=== PATIENT | female | born 1950 | race Caucasian/White ===

== ENCOUNTER 2021-03-18 13:43 | Inpatient (IN) | payer MEDICARE, SELFPAY ==
[2021-03-18] VITALS (18 sets, daily range): BP systolic 102–138; BP diastolic 63–93; PULSE 64–108; RESP 19–32; TEMP 36.6–37.3; O2SAT 78–95; BMI 38.7; BMI 39.6
--- NOTE | 2021-03-18 13:52 | PC.NURSE ---
PT O2 SAT OF 76% ON ROOM AIR IN TRIAGE, PT MOVED TO TRAUMA RM 4, MD NOTIFIED OF PT'S ARRIVAL.
--- NOTE | 2021-03-18 14:33 | XR_ITS ---
PROCEDURE: XR CHEST PORTABLE CLINICAL HISTORY: SOB, LOW O2 COMPARISON: CR CXR1 CHEST-PORTABLE from 11/21/2012 FINDINGS: Mild cardiomegaly without failure. There is diffuse consolidation in the right upper and right lower lobe and in the left lower lobe consistent with bilateral pneumonia. There is some sparing in the left apex. No obvious effusions. No evidence of pneumothorax. No acute bony abnormalities. IMPRESSION: Diffuse bilateral pneumonia Dictated by: Shreyas Montgomery MD 03/18/2021 15:30 Shreyas Montgomery MD in OV 03/18/2021 15:30
[2021-03-18 14:51] LABS: Influenza A, PCR Not Detected (NotDetected); Influenza B, PCR Not Detected (NotDetected)
[2021-03-18 14:52] LABS: Basophils # 0.1 K/mm3 (0-0.2); Basophils % 0.7 % (0.1-2.0); Eosinophils % 0.5 % (0.1-12.0); Hematocrit 43.1 % (37.0-47.0); Hemoglobin 14.2 g/dL (12.2-16.2); Lymphocytes % 12.2 % (10-50); Mean Corpuscular HGB Conc 32.9 g/dL (31.8-35.4); Mean Corpuscular Hemoglobin 31.9 pg (27.0-31.2); Mean Corpuscular Volume 97.1 fl (81-99); Mean Platelet Volume 7.8 fl (7.4-10.4); Monocytes # 0.3 K/mm3 (0.1-1.0); Monocytes % 4.1 % (1.7-9.3); Neutrophils # 6.7 K/mm3 (1.8-7.8); Neutrophils % 82.5 % (37.0-80.0); Platelet Count 310 K/mm3 (142-424); Red Blood Count 4.44 M/mm3 (4.20-5.40); Red Cell Distribution Width 13.3 % (11.5-17.5); White Blood Count 8.1 K/mm3 (4.8-10.8)
[2021-03-18 14:53] LABS: Chloride 96 mmol/L (98-107)
[2021-03-18 14:54] LABS: Potassium 3.9 mmoL/L (3.5-5.1); Sodium 136 mmol/L (136-145)
--- NOTE | 2021-03-18 14:54 | PC.NURSE ---
Switched pt to a nonrebreather mask d/t O2 sat 87% on 6LPM via NC
[2021-03-18 14:56] LABS: Alanine Aminotransferase 34 U/L (12-78); Alkaline Phosphatase 83 U/L (38-126); Aspartate Amino Transferase 70 U/L (14-36); Bilirubin,Total 0.2 mg/dl (0.2-1.3); Blood Urea Nitrogen 24 mg/dl (7-17); Creatinine Clearance Estimated 74 mL/min (50-200); Estimated Glomerular Filt Rate 40 ml/min (>60); GFR (African American) 49 ML/MIN (>60)
[2021-03-18 14:57] LABS: Albumin Level 3.6 g/dl (3.5-5.0); Albumin/Globulin Ratio 1.1 (1.1-1.8); Anion Gap 12.9 mEq/L (5-15); Calcium 9.1 mg/dl (8.4-10.2); Carbon Dioxide 31 mmol/L (22.0-30.0); Globulin 3.4 g/dL (1.3-3.2); Glucose 132 mg/dl (74-100); Lactic Acid 1.1 mmol/L (0.7-2.1)
[2021-03-18 15:13] LABS: Coronavirus 19, PCR Detected (NotDetected)
[2021-03-18 15:30] LABS: ABG HCO3 28.9 mmhg (22.0-26.0); ABG Oxygen Saturation 94 % (90-100); ABG PCO2 41.7 mmhg (35.0-45.0); ABG PH 7.46 mmol/L (7.35-7.45); ABG TCO2 30.1 mmhg (23-27)
[2021-03-18 15:31] LABS: Allen's Test Acceptable; Oxygen 100 %; Source Left Radial
--- NOTE | 2021-03-18 18:06 | HMH.EDGENADL ---
ED Disposition Clinical Impression: SHARONA (acute kidney injury), Acute respiratory failure with hypoxia, Pneumonia due to COVID-19 virus Disposition: Admitted As Inpatient Condition on Discharge: Fair Time of Disposition: 18:13 - Critical Care Critical Care Time: No Attestation: On 03/18/21, the high probability of a clinically significant, sudden or life threatening deterioration of the following system(s) required my full and direct attention, intervention and personal management. The time I documented below is in addition to time spent performing reported procedures but includes the following listed in this critical care notation. Medical Decision Making - Medical Records Medical records reviewed: Yes: I reviewed the patient's medical records. - Alejandro Inquiry Pt receiving controlled substance: No Vital Signs: 03/18/21 13:44 03/18/21 13:50 03/18/21 15:08 Temperature 99.2 F Temperature Source Oral Pulse Rate 100 H Pulse Rate [Right] 108 H Respiratory Rate 22 28 H Blood Pressure 127/93 H Blood Pressure [Right Arm] 106/63 L Blood Pressure Mean 112 Blood Pressure Mean [Right Arm] 77 02 Sat by Pulse Oximetry 78 L 92 L 92 L Oxygen Delivery Method Room Air Nasal Cannula Oxygen Flow Rate (LPM) 6 03/18/21 15:30 03/18/21 16:00 03/18/21 16:30 Temperature Temperature Source Pulse Rate 97 H 104 H 77 Pulse Rate [Right] Respiratory Rate 24 26 H 31 H Blood Pressure 121/73 115/74 127/74 Blood Pressure [Right Arm] Blood Pressure Mean 89 84 84 Blood Pressure Mean [Right Arm] 02 Sat by Pulse Oximetry 92 L 92 L 92 L Oxygen Delivery Method Oxygen Flow Rate (LPM) 03/18/21 17:01 03/18/21 17:30 03/18/21 18:00 Temperature Temperature Source Pulse Rate 103 H 96 H 98 H Pulse Rate [Right] Respiratory Rate 19 29 H 32 H Blood Pressure 102/65 L 119/73 126/76 Blood Pressure [Right Arm] Blood Pressure Mean 77 88 87 Blood Pressure Mean [Right Arm] 02 Sat by Pulse Oximetry 88 L 94 L 87 L Oxygen Delivery Method Oxygen Flow Rate (LPM) - Lab Data Lab results reviewed: Yes: I reviewed the patient's lab results. Lab Results 03/18/21 14:24: SARS-CoV-2 (PCR) Detected A, Influenza A Untype (PCR) Not detected, Influenza Type B (PCR) Not detected 03/18/21 14:31: WBC 8.1, RBC 4.44, Hgb 14.2, Hct 43.1, MCV 97.1, MCH 31.9 H, MCHC 32.9, RDW 13.3, Plt Count 310, MPV 7.8, Neut % (Auto) 82.5 H, Lymph % (Auto) 12.2, [place] % (Auto) 4.1, Eos % (Auto) 0.5, Baso % (Auto) 0.7, Neut # (Auto) 6.7, Lymph # (Auto) 1.0, [place] # (Auto) 0.3, Eos # (Auto) 0.0, Baso # (Auto) 0.1 03/18/21 14:31: Sodium 136, Potassium 3.9, Chloride 96 L, Carbon Dioxide 31 H, Anion Gap 12.9, BUN 24 H, Creatinine 1.30 H, Estimated Creat Clear 74, Estimated GFR 40 L, Est GFR ( Amer) 49 L, Glucose 132 H, Calcium 9.1, Total Bilirubin 0.2, AST 70 H, ALT 34, Alkaline Phosphatase 83, Total Protein 7.0, Albumin 3.6, Globulin 3.4 H, Albumin/Globulin Ratio 1.1 03/18/21 14:31: Lactate 1.1 03/18/21 15:28: Specimen Source Left radial, O2 % 100, ABG pH 7.46 H, ABG pCO2 41.7, ABG pO2 65.0 L, ABG HCO3 28.9 H, ABG Total CO2 30.1 H, ABG O2 Saturation 94, ABG Base Excess 5.0 H, Shreyas Test Acceptable Result diagrams: 03/18/21 14:31 03/18/21 14:31 Orders (Tests/Meds): ED MEDICATIONS Generic Name Dose Route Start Last Admin Trade Name Freq PRN Reason Stop Dose Admin Azithromycin 500 mg/ Sodium 250 mls @ 250 mls/hr 03/18/21 16:00 03/18/21 17:46 Chloride IV 04/01/21 15:59 250 mls/hr Q24H SERA Administration Ceftriaxone Sodium 1 gm/ 50 mls @ 100 mls/hr 03/18/21 16:00 03/18/21 16:41 Sodium Chloride IV 04/01/21 15:59 100 mls/hr Q24H SERA Administration Sodium Chloride 1,000 mls @ 999 mls/hr 03/18/21 18:15 Sod Chlor 0.9% 1000ml Bag IV 03/18/21 19:15 .Q1H1M SERA Iopamidol 70 ml 03/18/21 18:41 03/18/21 18:42 Iopamidol-370 (76%);100ml Bottle IV 03/18/21 18:42 70 ml ONCE ONE Administ
--- NOTE | 2021-03-18 18:12 | CT_ITS ---
PROCEDURE INFORMATION: Exam: CTA Chest With Contrast Exam date and time: 03/18/2021 6:12 PM Age: 70 years old Clinical indication: Pain; On breathing; Additional info: Resp failure TECHNIQUE: Imaging protocol: Computed tomographic angiography of the chest with contrast. 3D rendering (Not supervised by radiologist): MIP and/or 3D reconstructed images were created by the technologist. Radiation optimization: All CT scans at this facility use at least one of these dose optimization techniques: automated exposure control; mA and/or kV adjustment per patient size (includes targeted exams where dose is matched to clinical indication); or iterative reconstruction. Contrast material: ISOVUE; Contrast volume: 75 ml; Contrast route: INTRAVENOUS (IV); COMPARISON: CR XR CHEST PORTABLE 03/18/2021 2:40 PM FINDINGS: Pulmonary arteries: Normal. No pulmonary emboli. Aorta: Unremarkable. No aortic aneurysm. No aortic dissection. Lungs: Patchy subpleural predominant ground-glass opacities are concerning for atypical infection, possibly mild changes of influenza like illness. Pleural spaces: Unremarkable. No pneumothorax. No pleural effusion. Heart: Unremarkable. No cardiomegaly. No pericardial effusion. Mediastinal space: A small sliding hiatal hernia is present. Lymph nodes: Prominent mediastinal and hilar lymph nodes are likely reactive. Liver: Multiple calcific densities of the liver are likely related to prior granulomatous process. Spleen: Multiple calcific densities of the spleen are likely related to prior granulomatous process. Bones/joints: Unremarkable. No acute fracture. Soft tissues: Unremarkable. IMPRESSION: Patchy subpleural predominant ground-glass opacities are concerning for atypical infection, possibly mild changes of influenza like illness. No CT angiography evidence of pulmonary embolism. Motion artifacts slightly limits sensitivity and specificity of the examination.
--- NOTE | 2021-03-18 19:17 | PC.NURSE ---
CAROLINE JAUREGUI spoke with Dr. Jack
--- NOTE | 2021-03-18 19:22 | PC.NURSE ---
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
[2021-03-18 20:50] LABS: Alanine Aminotransferase 29 U/L (12-78); Albumin Level 3.5 g/dl (3.5-5.0); Albumin/Globulin Ratio 1.1 (1.1-1.8); Alkaline Phosphatase 71 U/L (38-126); Aspartate Amino Transferase 67 U/L (14-36); Bilirubin,Total 0.2 mg/dl (0.2-1.3); Blood Urea Nitrogen 24 mg/dl (7-17); Calcium 8.8 mg/dl (8.4-10.2); Carbon Dioxide 30 mmol/L (22.0-30.0); Chloride 97 mmol/L (98-107); Creatinine Clearance Estimated 80 mL/min (50-200); Estimated Glomerular Filt Rate 44 ml/min (>60); GFR (African American) 54 ML/MIN (>60); Globulin 3.1 g/dL (1.3-3.2); Glucose 106 mg/dl (74-100); Sodium 136 mmol/L (136-145); Total Protein,Serum 6.6 g/dl (6.3-8.2)
--- NOTE | 2021-03-18 21:59 | PC.NURSE ---
patient up to floor via stretcher.
[2021-03-19] VITALS (10 sets, daily range): BP systolic 128–142; BP diastolic 64–93; PULSE 66–104; RESP 18–25; TEMP 36.6–36.9; O2SAT 87–96; BMI 39.6
--- NOTE | 2021-03-19 00:21 | PC.NURSE ---
A&OX4. PT IS TOLERATING VAPOTHERM AT 40L 100%, O2 SAT IN LOW 90S. PT HAS NOT C/O PAIN, OR SOA. PT DOES HAVE A NON-PRODUCTIVE COUGH. PT HAS BEEN TOLD THAT WE NEED A SPUTUM SAMPLE. PT IS ABLE TO GET UP TO THE BEDSIDE COMMODE ON HER OWN. PT RESTING COMFORTABLY IN BED AT THIS TIME. PT HAS A GOOD APPETITE. HOME MEDS LOCKED IN DRAWER. NO OTHER C/O NOTED, VSS WILL CONTINUE TO MONITOR. PROPER PRECAUTIONS TAKEN BY STAFF T/O SHIFT.
--- NOTE | 2021-03-19 00:54 | PC.NURSE ---
REPORT TO BE HANDED OFF TO Hodan LAZO AT 0100.
[2021-03-19 06:24] LABS: Basophils # 0.1 K/mm3 (0-0.2); Basophils % 0.7 % (0.1-2.0); Eosinophils % 0.4 % (0.1-12.0); Hematocrit 41.1 % (37.0-47.0); Lymphocytes # 1.3 K/mm3 (0.7-4.5); Lymphocytes % 17.8 % (10-50); Mean Corpuscular HGB Conc 31.6 g/dL (31.8-35.4); Mean Corpuscular Hemoglobin 31.3 pg (27.0-31.2); Mean Corpuscular Volume 98.9 fl (81-99); Mean Platelet Volume 7.7 fl (7.4-10.4); Monocytes # 0.4 K/mm3 (0.1-1.0); Monocytes % 5.2 % (1.7-9.3); Neutrophils # 5.5 K/mm3 (1.8-7.8); Neutrophils % 75.9 % (37.0-80.0); Platelet Count 315 K/mm3 (142-424); Red Blood Count 4.16 M/mm3 (4.20-5.40); Red Cell Distribution Width 13.5 % (11.5-17.5); White Blood Count 7.2 K/mm3 (4.8-10.8)
[2021-03-19 06:34] LABS: Alanine Aminotransferase 29 U/L (12-78); Albumin Level 3.2 g/dl (3.5-5.0); Alkaline Phosphatase 68 U/L (38-126); Anion Gap 11.8 mEq/L (5-15); Aspartate Amino Transferase 63 U/L (14-36); Bilirubin,Total 0.2 mg/dl (0.2-1.3); Blood Urea Nitrogen 20 mg/dl (7-17); Calcium 8.4 mg/dl (8.4-10.2); Carbon Dioxide 33 mmol/L (22.0-30.0); Chloride 96 mmol/L (98-107); Creatinine Clearance Estimated 98 mL/min (50-200); Estimated Glomerular Filt Rate 55 ml/min (>60); GFR (African American) 66 ML/MIN (>60); Globulin 3.1 g/dL (1.3-3.2); Glucose 102 mg/dl (74-100); Magnesium 1.5 mg/dl (1.6-2.3); Potassium 3.8 mmoL/L (3.5-5.1); Sodium 137 mmol/L (136-145); Total Protein,Serum 6.3 g/dl (6.3-8.2)
--- NOTE | 2021-03-19 07:31 | P.CONPHA_ITS ---
[facility] Pharmacy VTE Monitoring - Patient Demographics Admission date: 03/18/21 Report Date: 03/19/21 Time: 07:31 Allergies/Adverse Reactions: Patient Allergies No Known Allergies Allergy (Verified 03/17/18 14:24) Height: 1.73 m Weight: 118.87 kg Patient Problems: Current Active Problems SHARONA (acute kidney injury) (Acute) Acute respiratory failure with hypoxia (Acute) Pneumonia due to COVID-19 virus (Acute) - VTE Risk Labs: VTE Related Lab Results Hgb 13.0 g/dL (12.2-16.2) 03/19/21 06:06 Hct 41.1 % (37.0-47.0) 03/19/21 06:06 Plt Count 315 K/mm3 (142-424) 03/19/21 06:06 BUN 20 mg/dl (7-17) H 03/19/21 06:06 Creatinine 1.00 mg/dl (0.52-1.04) 03/19/21 06:06 Estimated Creat Clear 98 mL/min (50-200) 03/19/21 06:06 - Prophylaxis VTE Prophylaxis Ordered?: Yes Types of VTE Prophylaxis: IPCS Thigh High, Pharmacological Location of Applied Device: Bilateral Lower Extremeties Pharmacologic Type: Enoxaparin
--- NOTE | 2021-03-19 10:20 | HMH.PHAINT ---
verified home medicaiton list using list from [facility]
--- NOTE | 2021-03-19 12:53 | HMH.HP ---
*Admission Date: 03/18/21 *Chief complaint: weakness *History of present illness: 70 year old female with nearly 2 weeks of URI symptoms attributed to allergies presented to the ER with increasing weakness over the preceding 48 hours and was found to be hypoxic. Further workup diagnosed Acute resp. failure due to Covid-19 pneumonia. Patient was intially placed on NC at 6L/min but since admission has been transitioned to maximum HFNC. Patient has not h/o lung disease but has HTN and is Obese. She denies SOA and cough has been mostly nonproductive. She has not recieved a Covid vaccine [facility] History I have reviewed the patient's past medical history: Yes Medical History: Reports:: Hypertension *Have you ever received a pneumonia vaccine?: No *Have you received a flu vaccine this season?: No Other Medical History: Reports: Arthritis Other Surgeries: Yes: Hysterectomy-Total Amputation: No Fractures: No - *Social History Smoking Status: Former smoker Tobacco Type: cigarettes Alcohol Intake: never Substance Use Type: denies use *Occupational Status:: retired *Travel in the last 8 weeks: None Family Hx:: No significant family history Review of Systems - Review of Systems Review of systems:: pertinent systems reviewed and negative unless documented below Meds Home Medications Medication Instructions Recorded Confirmed Type Flurbiprofen 100 mg PO BID 03/19/21 03/19/21 History Solifenacin Succinate 10 mg PO DAILY 03/19/21 03/19/21 History cilostazoL [Pletal 100mg tablet] 100 mg PO BID 03/19/21 03/19/21 History lisinopriL [Lisinopril] 10 mg PO DAILY 03/19/21 03/19/21 History metOLazone [Metolazone 5mg Tab] 5 mg PO DAILY 03/19/21 03/19/21 History Allergies Allergy/AdvReac Type Severity Reaction Status Date / Time No Known Allergies Allergy Verified 03/17/18 14:24 Exam Vital signs and Labs for Last 24 Hours: Temp Pulse Resp BP Pulse Ox 97.8 F 104 H 20 131/93 H 87 L 03/19/21 07:57 03/19/21 07:57 03/19/21 07:57 03/19/21 07:57 03/19/21 07:57 Laboratory Results - last 24 hr 03/18/21 14:24: SARS-CoV-2 (PCR) Detected A, Influenza A Untype (PCR) Not detected, Influenza Type B (PCR) Not detected 03/18/21 14:31: WBC 8.1, RBC 4.44, Hgb 14.2, Hct 43.1, MCV 97.1, MCH 31.9 H, MCHC 32.9, RDW 13.3, Plt Count 310, MPV 7.8, Neut % (Auto) 82.5 H, Lymph % (Auto) 12.2, [place] % (Auto) 4.1, Eos % (Auto) 0.5, Baso % (Auto) 0.7, Neut # (Auto) 6.7, Lymph # (Auto) 1.0, [place] # (Auto) 0.3, Eos # (Auto) 0.0, Baso # (Auto) 0.1 03/18/21 14:31: Sodium 136, Potassium 3.9, Chloride 96 L, Carbon Dioxide 31 H, Anion Gap 12.9, BUN 24 H, Creatinine 1.30 H, Estimated Creat Clear 74, Estimated GFR 40 L, Est GFR ( Amer) 49 L, Glucose 132 H, Calcium 9.1, Total Bilirubin 0.2, AST 70 H, ALT 34, Alkaline Phosphatase 83, Total Protein 7.0, Albumin 3.6, Globulin 3.4 H, Albumin/Globulin Ratio 1.1 03/18/21 14:31: Lactate 1.1 03/18/21 15:28: Specimen Source Left radial, O2 % 100, ABG pH 7.46 H, ABG pCO2 41.7, ABG pO2 65.0 L, ABG HCO3 28.9 H, ABG Total CO2 30.1 H, ABG O2 Saturation 94, ABG Base Excess 5.0 H, Shreyas Test Acceptable 03/18/21 20:10: Sodium 136, Potassium 4.0, Chloride 97 L, Carbon Dioxide 30, Anion Gap 13.0, BUN 24 H, Creatinine 1.20 H, Estimated Creat Clear 80, Estimated GFR 44 L, Est GFR ( Amer) 54 L, Glucose 106 H, Calcium 8.8, Total Bilirubin 0.2, AST 67 H, ALT 29, Alkaline Phosphatase 71, Total Protein 6.6, Albumin 3.5, Globulin 3.1, Albumin/Globulin Ratio 1.1 03/19/21 06:06: WBC 7.2, RBC 4.16 L, Hgb 13.0, Hct 41.1, MCV 98.9, MCH 31.3 H, MCHC 31.6 L, RDW 13.5, Plt Count 315, MPV 7.7, Neut % (Auto) 75.9, Lymph % (Auto) 17.8, [place] % (Auto) 5.2, Eos % (Auto) 0.4, Baso % (Auto) 0.7, Neut # (Auto) 5.5, Lymph # (Auto) 1.3, [place] # (Auto) 0.4, Eos # (Auto) 0.0, Baso # (Auto) 0.1 03/19/21 06:06: Sodium 137, Potassium 3.8, Chloride 96 L, Carbon Dioxide 33 H, Anion Gap 11.8, BUN 20 H, Creatinine 1.00, Estimated Creat Clear 98, Estimated GFR 55 L, Est GFR (
--- NOTE | 2021-03-19 19:00 | PC.NURSE ---
PT ARRIVED TO THE FLOOR AT THIS TIME
--- NOTE | 2021-03-19 19:49 | PC.NURSE ---
VAPOTHERM 40 LPM 100% FIO2. SITTING UP IN BED. AOX4, DENIES PAIN. VITAL SIGNS STABLE.
[2021-03-20] VITALS (8 sets, daily range): BP systolic 120–149; BP diastolic 80–93; PULSE 78–100; RESP 21–24; TEMP 36.4–37.1; O2SAT 88–95; BMI 39.6; BMI 39.7
--- NOTE | 2021-03-20 03:22 | PC.NURSE ---
No acute changes t/o shift. Pt rested well all night. Pt denies of any pain, N/V. Pt remains on vapotherm 40L/min 100% FIO2. Pt will destat to 88% but will recover quickly back to 90%. Pt uses bedside commode independently. VSS, will continue to monitor.
[2021-03-20 06:23] LABS: Basophils % 0.9 % (0.1-2.0); Eosinophils % 0.1 % (0.1-12.0); Hematocrit 39.7 % (37.0-47.0); Hemoglobin 12.4 g/dL (12.2-16.2); Lymphocytes # 1.5 K/mm3 (0.7-4.5); Lymphocytes % 32.9 % (10-50); Mean Corpuscular HGB Conc 31.3 g/dL (31.8-35.4); Mean Corpuscular Hemoglobin 30.9 pg (27.0-31.2); Mean Corpuscular Volume 98.6 fl (81-99); Mean Platelet Volume 7.6 fl (7.4-10.4); Monocytes # 0.4 K/mm3 (0.1-1.0); Monocytes % 8.9 % (1.7-9.3); Neutrophils # 2.6 K/mm3 (1.8-7.8); Neutrophils % 57.2 % (37.0-80.0); Platelet Count 340 K/mm3 (142-424); Red Blood Count 4.03 M/mm3 (4.20-5.40); Red Cell Distribution Width 13.4 % (11.5-17.5); White Blood Count 4.6 K/mm3 (4.8-10.8)
[2021-03-20 06:44] LABS: Anion Gap 10.3 mEq/L (5-15); Blood Urea Nitrogen 16 mg/dl (7-17); Calcium 8.3 mg/dl (8.4-10.2); Carbon Dioxide 35 mmol/L (22.0-30.0); Chloride 98 mmol/L (98-107); Creatinine Clearance Estimated 98 mL/min (50-200); Estimated Glomerular Filt Rate 71 ml/min (>60); GFR (African American) 86 ML/MIN (>60); Glucose 105 mg/dl (74-100); Potassium 4.3 mmoL/L (3.5-5.1); Sodium 139 mmol/L (136-145)
--- NOTE | 2021-03-20 07:19 | HMH.ACPN2 ---
Internal Medicine - PN: Subj *Date: 03/20/21 *Time: 07:19 Interval history: Patient feels like the last 24 hours have gone well. She does not feel better but she does not feel worse. She denies shortness of breath. O2 sats have been maintained on high flow nasal cannula between 88 and 92% Exam Vital signs and Labs for Last 24 Hours: Temp Pulse Resp BP Pulse Ox 97.9 F 78 24 149/80 H 88 L 03/20/21 04:00 03/20/21 04:00 03/20/21 04:00 03/20/21 04:00 03/20/21 04:00 Laboratory Results - last 24 hr 03/20/21 05:58: WBC 4.6 L D, RBC 4.03 L, Hgb 12.4, Hct 39.7, MCV 98.6, MCH 30.9, MCHC 31.3 L, RDW 13.4, Plt Count 340, MPV 7.6, Neut % (Auto) 57.2, Lymph % (Auto) 32.9, [place] % (Auto) 8.9, Eos % (Auto) 0.1, Baso % (Auto) 0.9, Neut # (Auto) 2.6, Lymph # (Auto) 1.5, [place] # (Auto) 0.4, Eos # (Auto) 0.0, Baso # (Auto) 0.0 03/20/21 05:58: Sodium 139, Potassium 4.3, Chloride 98, Carbon Dioxide 35 H, Anion Gap 10.3, BUN 16, Creatinine 0.80, Estimated Creat Clear 98, Estimated GFR 71, Est GFR ( Amer) 86 D, Glucose 105 H, Calcium 8.3 L I & O for Last 24 hours: Intake & Output 03/17/21 03/18/21 03/19/21 03/20/21 11:59 11:59 11:59 11:59 Intake Total 240 / 240 180 / 180 Output Total 0 / 0 Balance 240 / 240 180 / 180 Weight 262 lb 1 oz 262 lb 1.016 oz - Constitutional no acute distress - *Routine Respiratory Exam Present: rhonchi - *Routine Cardiovascular Exam Present: RRR - *Routine Abdominal Exam Present: soft, normoactive bowel sounds. Absent: tenderness Assessment and Plan (1) Acute respiratory failure with hypoxia Status: Acute Category: Medical Code(s): J96.01 - Acute respiratory failure with hypoxia (2) Pneumonia due to COVID-19 virus Status: Acute Category: Medical Code(s): U07.1 - COVID-19; J12.82 - Pneumonia due to coronavirus disease 2019 (3) SHARONA (acute kidney injury) Status: Resolved Category: Medical Code(s): N17.9 - Acute kidney failure, unspecified (4) Hypertension Status: Acute Category: Medical Code(s): I10 - Essential (primary) hypertension (5) Hypomagnesemia Status: Acute Category: Medical Code(s): E83.42 - Hypomagnesemia - Assessment and plan all Dx Assessment and Plan for all problems:: 1. Continue high flow nasal cannula along with Remdesivir, baricitinib, dexamethasone, Rocephin, azithromycin, duo nebs, incentive spirometry, chest physiotherapy
--- NOTE | 2021-03-20 09:00 | HMH.PULMCON ---
*Admission Date: 03/18/21 *Reason for consult:: Acute hypoxic respiratory failure, COVID-19 pneumonia *History of present illness: Ms. Wetzel is a 78-year-old female presented to the ER with worsening respiratory distress and muscle weakness and eventually found to be COVID-19 positive initially needing nasal cannula patient to manage her respiratory distress and pulmonary was called for further management. [facility] History Medical History: Reports:: Hypertension *Have you ever received a pneumonia vaccine?: No *Have you received a flu vaccine this season?: No Other Medical History: Reports: Arthritis Other Surgeries: Yes: Hysterectomy-Total Amputation: No Fractures: No - *Social History Smoking Status: Former smoker Tobacco Type: cigarettes Alcohol Intake: never Substance Use Type: denies use *Occupational Status:: retired *Travel in the last 8 weeks: None Family Hx:: No significant family history ROS - Cons Reports anorexia, Reports body ache(s), Reports chills - Card Reports shortness of breath, Reports shortness of breath with activity - Resp Respiratory: Reports chest congestion, Reports cough, Reports excessive phlegm production, Denies coughing up blood, Denies pain with breathing - GI Gastrointestingal: Denies: abdominal pain - Psych Reports abnormal sleep pattern Meds Home Medications Medication Instructions Recorded Confirmed Type Flurbiprofen 100 mg PO BID 03/19/21 03/19/21 History Solifenacin Succinate 10 mg PO DAILY 03/19/21 03/19/21 History cilostazoL [Pletal 100mg tablet] 100 mg PO BID 03/19/21 03/19/21 History lisinopriL [Lisinopril] 10 mg PO DAILY 03/19/21 03/19/21 History metOLazone [Metolazone 5mg Tab] 5 mg PO DAILY 03/19/21 03/19/21 History Allergies Allergy/AdvReac Type Severity Reaction Status Date / Time No Known Allergies Allergy Verified 03/17/18 14:24 Exam - Constitutional Constitutional:: Absent: no acute distress, comfortable - HENMT Exam HENMT: Present: normocephalic, atraumatic - Eye Exam Eyes:: Present: normal appearance both eyes and related structures - Neck Exam Neck:: Present: normal visual inspection - Respiratory Exam Respiratory:: Present: respiratory distress. Absent: able to speak in complete sentences - Cardiovascular Exam Cardiac:: Present: S1, S2 - GI Exam GI:: Present: soft - Skin Exam Skin: Present: warm, no rash - Neurological Exam Neurological: Present: alert, awake, normal cognition - Extremities Exam Extremities: Present: no cyanosis, no clubbing, edema Internal Medicine - CN: Reslt - Labs CBC & Chem 7: 03/20/21 05:58 03/20/21 05:58 Labs: Short CBC 03/20/21 Range/Units 05:58 WBC 4.6 L D (4.8-10.8) K/mm3 Hgb 12.4 (12.2-16.2) g/dL Hct 39.7 (37.0-47.0) % Plt Count 340 (142-424) K/mm3 BMP 03/20/21 05:58 Sodium 139 Potassium 4.3 Chloride 98 Carbon Dioxide 35 H BUN 16 Creatinine 0.80 Glucose 105 H Calcium 8.3 L - ABG Interpretation ABG results: 03/18/21 15:28 ABG pH 7.46 H ABG pCO2 41.7 ABG pO2 65.0 L ABG HCO3 28.9 H ABG Total CO2 30.1 H ABG O2 Saturation 94 ABG Base Excess 5.0 H Assessment and Plan (1) Acute respiratory failure with hypoxia Status: Acute Category: Medical Code(s): J96.01 - Acute respiratory failure with hypoxia (2) Pneumonia due to COVID-19 virus Status: Acute Category: Medical Code(s): U07.1 - COVID-19; J12.82 - Pneumonia due to coronavirus disease 2019 (3) SHARONA (acute kidney injury) Status: Resolved Category: Medical Code(s): N17.9 - Acute kidney failure, unspecified (4) Hypertension Status: Acute Category: Medical Code(s): I10 - Essential (primary) hypertension (5) Hypomagnesemia Status: Acute Category: Medical Code(s): E83.42 - Hypomagnesemia - Assessment and plan all Dx Assessment and Plan for all problems:: Acute hypoxic respiratory failure: #COVID-19 pneumonia: CTA did not
[2021-03-20 09:35] LABS: Magnesium 2.1 mg/dl (1.6-2.3)
--- NOTE | 2021-03-20 13:31 | CA_ITS ---
APPROVED REPORT Bilateral Lower Extremity Venous Study for DVT. Instructor Of Education: HARLAN Indications Covid -19, obesity, varicosities, Hypoxia Vein Imaging CFV (R): compressive, spontaneous, phasic, augmentation SFJ (R): compressive, spontaneous, phasic, augmentation FEM (R): compressive, spontaneous, phasic, augmentation POP (R): compressive, spontaneous, phasic, augmentation DFV (R): compressive, spontaneous, phasic, augmentation PTV (R): non-Compressible with spontaneous flow GSV (R): compressive, spontaneous, phasic, augmentation SSV (R): compressive, spontaneous, phasic, augmentation Peroneals (R):compressive, spontaneous, phasic, augmentation GAS (R): compressive, spontaneous, phasic, augmentation CFV (L): compressive, spontaneous, phasic, augmentation SFJ (L): compressive, spontaneous, phasic, augmentation FEM (L): compressive, spontaneous, phasic, augmentation POP (L): compressive, spontaneous, phasic, augmentation DFV (L): compressive, spontaneous, phasic, augmentation PTV (L): compressive, spontaneous, phasic, augmentation GSV (L): compressive, spontaneous, phasic, augmentation SSV (L): compressive, spontaneous, phasic, augmentation Peroneals (L):compressive, spontaneous, phasic, augmentation GAS (L): compressive, spontaneous, phasic, augmentation Findings Color flow duplex demonstrates no evidence of DVT of the following bilateral lower extremity Veins:Common Femoral Vein, Femoral Vein, Popliteal Vein, Left Posterior Tibial Veins, Peroneal Veins, Deep Femoral Vein. Right Posterior tibial veins display spontaneous flow, but are rigid and are noncompressible. Equivocal findings consistent for DVT of the right PTV's. Conclusion Color flow duplex demonstrates no evidence of DVT of the following bilateral lower extremity Veins:Common Femoral Vein, Femoral Vein, Popliteal Vein, Left Posterior Tibial Veins, Peroneal Veins, Deep Femoral Vein. Right Posterior tibial veins display spontaneous flow, but are rigid and are noncompressible. Equivocal findings consistent for DVT of the right PTV's. Electronically signed by : Shreyas Montgomery MD 03/23/2021 16:25:29
[2021-03-20 14:26] LABS: C-Reactive Protein 120.2 mg/L (0-4); D-Dimer 0.73 ug/mL (0.0-0.5)
[2021-03-20 15:33] LABS: Ferritin 288 ng/ml (11.1-264)
--- NOTE | 2021-03-20 18:16 | PC.NURSE ---
Pt has been pleasant and cooperative this shift. A&O X4. No complaints of pain. Pt is currently receiving O2 via Vapotherm @ 40 LPM with sats. >88%. Lungs CTA. No edema noted. Skin is C/D/I. Pt ambulates independently in the room and uses the BSC. Urine is clear and yellow. No BM thus far today. Appetite is good and pt eats the majority of all meals. 20 G peripheral IV in the LT AC is patent and SL. VSS. Call light within reach. Will continue to monitor.
[2021-03-21] VITALS (9 sets, daily range): BP systolic 111–166; BP diastolic 60–95; PULSE 82–101; RESP 14–22; TEMP 36.6–37.1; O2SAT 90–98
--- NOTE | 2021-03-21 03:42 | PC.NURSE ---
A&OX4. TOLERATING VAPOTHERM AT 40L 100%. O2 SAT IN LOW 90S. PT HAS HAD NO C/O SOA/COUGH/PAIN THUS FAR. PT UP INDEPENDENTLY TO BEDSIDE COMMODE. HAS SLEPT MAJORITY OF SHIFT. PT DOES LIE ON HER SIDE. COVID PRECAUTIONS IN PLACE. VSS WILL CONTINUE TO MONITOR.
[2021-03-21 07:45] LABS: Basophils # 0.1 K/mm3 (0-0.2); Basophils % 0.7 % (0.1-2.0); Eosinophils % 0.2 % (0.1-12.0); Hematocrit 40.8 % (37.0-47.0); Lymphocytes # 2.2 K/mm3 (0.7-4.5); Lymphocytes % 32.5 % (10-50); Mean Corpuscular HGB Conc 31.9 g/dL (31.8-35.4); Mean Corpuscular Hemoglobin 31.1 pg (27.0-31.2); Mean Corpuscular Volume 97.7 fl (81-99); Mean Platelet Volume 7.7 fl (7.4-10.4); Monocytes # 0.7 K/mm3 (0.1-1.0); Monocytes % 9.6 % (1.7-9.3); Neutrophils # 3.9 K/mm3 (1.8-7.8); Neutrophils % 57.1 % (37.0-80.0); Platelet Count 415 K/mm3 (142-424); Red Blood Count 4.18 M/mm3 (4.20-5.40); Red Cell Distribution Width 13.3 % (11.5-17.5); White Blood Count 6.8 K/mm3 (4.8-10.8)
[2021-03-21 07:59] LABS: Alanine Aminotransferase 27 U/L (12-78); Albumin Level 3.4 g/dl (3.5-5.0); Albumin/Globulin Ratio 1.1 (1.1-1.8); Alkaline Phosphatase 65 U/L (38-126); Anion Gap 9.9 mEq/L (5-15); Aspartate Amino Transferase 53 U/L (14-36); Bilirubin,Total 0.3 mg/dl (0.2-1.3); Blood Urea Nitrogen 14 mg/dl (7-17); Calcium 8.5 mg/dl (8.4-10.2); Carbon Dioxide 35 mmol/L (22.0-30.0); Chloride 96 mmol/L (98-107); Creatinine Clearance Estimated 98 mL/min (50-200); Estimated Glomerular Filt Rate 83 ml/min (>60); GFR (African American) 100 ML/MIN (>60); Globulin 3.2 g/dL (1.3-3.2); Glucose 105 mg/dl (74-100); Potassium 3.9 mmoL/L (3.5-5.1); Sodium 137 mmol/L (136-145); Total Protein,Serum 6.6 g/dl (6.3-8.2)
--- NOTE | 2021-03-21 08:18 | HMH.ACPN2 ---
Internal Medicine - PN: Subj *Date: 03/21/21 *Time: 08:18 Interval history: No acute events in the last 24 hours. Patient has remained stable on maximum HFNC with sats ranging from 90 to 96%. Patient did decline Remdesivir yesterday based on her political beliefs. Exam Vital signs and Labs for Last 24 Hours: Temp Pulse Resp BP Pulse Ox 98.5 F 82 22 114/60 96 03/21/21 04:00 03/21/21 04:00 03/21/21 04:00 03/21/21 04:00 03/21/21 06:49 Laboratory Results - last 24 hr 03/20/21 05:58: Magnesium 2.1 D 03/20/21 13:55: C-Reactive Protein 120.2 H 03/20/21 13:55: D-Dimer 0.73 H 03/20/21 13:55: Ferritin 288 H 03/21/21 06:56: WBC 6.8 D, RBC 4.18 L, Hgb 13.0, Hct 40.8, MCV 97.7, MCH 31.1, MCHC 31.9, RDW 13.3, Plt Count 415, MPV 7.7, Neut % (Auto) 57.1, Lymph % (Auto) 32.5, [place] % (Auto) 9.6 H, Eos % (Auto) 0.2, Baso % (Auto) 0.7, Neut # (Auto) 3.9, Lymph # (Auto) 2.2, [place] # (Auto) 0.7, Eos # (Auto) 0.0, Baso # (Auto) 0.1 03/21/21 06:56: Sodium 137, Potassium 3.9, Chloride 96 L, Carbon Dioxide 35 H, Anion Gap 9.9, BUN 14, Creatinine 0.70, Estimated Creat Clear 98, Estimated GFR 83, Est GFR ( Amer) 100, Glucose 105 H, Calcium 8.5, Total Bilirubin 0.3, AST 53 H, ALT 27, Alkaline Phosphatase 65, Total Protein 6.6, Albumin 3.4 L, Globulin 3.2, Albumin/Globulin Ratio 1.1 I & O for Last 24 hours: Intake & Output 03/18/21 03/19/21 03/20/21 03/21/21 11:59 11:59 11:59 11:59 Intake Total 240 / 240 660 / 660 1130 / 1130 Output Total 0 / 0 800 / 800 Balance 240 / 240 660 / 660 330 / 330 Weight 262 lb 1 oz 262 lb 5.601 oz Microbiology Reports for the Last 24 Hours: Microbiology 03/18/21 14:31 Blood Blood Culture - Preliminary NO GROWTH AFTER 48 HOURS 03/18/21 14:31 Blood Blood Culture - Preliminary NO GROWTH AFTER 48 HOURS 03/20/21 08:00 Sputum - Expectorated Sputum Gram Stain - Final - Constitutional no acute distress - *Routine Respiratory Exam Present: rhonchi - *Routine Cardiovascular Exam Present: RRR - *Routine Abdominal Exam Present: soft, normoactive bowel sounds. Absent: tenderness Assessment and Plan (1) Acute respiratory failure with hypoxia Status: Acute Category: Medical Code(s): J96.01 - Acute respiratory failure with hypoxia (2) Pneumonia due to COVID-19 virus Status: Acute Category: Medical Code(s): U07.1 - COVID-19; J12.82 - Pneumonia due to coronavirus disease 2019 (3) SHARONA (acute kidney injury) Status: Resolved Category: Medical Code(s): N17.9 - Acute kidney failure, unspecified (4) Hypertension Status: Acute Category: Medical Code(s): I10 - Essential (primary) hypertension (5) Hypomagnesemia Status: Resolved Category: Medical Code(s): E83.42 - Hypomagnesemia - Assessment and plan all Dx Assessment and Plan for all problems:: 1. Continue dexamethasone, baricitinib for acute respiratory failure from COVID-19 pneumonia 2. Continue Advair, aerosols, Rocephin and azithromycin. Patient has been unable to provide a sputum for culture 3. Continue prone breathing as tolerated
--- NOTE | 2021-03-21 17:06 | HMH.ACPN ---
Internal Medicine - PN: Subj *Date: 03/21/21 *Time: 17:06 Exam Vital signs and Labs for Last 24 Hours: Temp Pulse Resp BP Pulse Ox 98.4 F 98 H 21 144/95 H 90 L 03/21/21 12:00 03/21/21 12:00 03/21/21 12:00 03/21/21 12:00 03/21/21 12:00 Laboratory Results - last 24 hr 03/21/21 06:56: WBC 6.8 D, RBC 4.18 L, Hgb 13.0, Hct 40.8, MCV 97.7, MCH 31.1, MCHC 31.9, RDW 13.3, Plt Count 415, MPV 7.7, Neut % (Auto) 57.1, Lymph % (Auto) 32.5, [place] % (Auto) 9.6 H, Eos % (Auto) 0.2, Baso % (Auto) 0.7, Neut # (Auto) 3.9, Lymph # (Auto) 2.2, [place] # (Auto) 0.7, Eos # (Auto) 0.0, Baso # (Auto) 0.1 03/21/21 06:56: Sodium 137, Potassium 3.9, Chloride 96 L, Carbon Dioxide 35 H, Anion Gap 9.9, BUN 14, Creatinine 0.70, Estimated Creat Clear 98, Estimated GFR 83, Est GFR ( Amer) 100, Glucose 105 H, Calcium 8.5, Total Bilirubin 0.3, AST 53 H, ALT 27, Alkaline Phosphatase 65, Total Protein 6.6, Albumin 3.4 L, Globulin 3.2, Albumin/Globulin Ratio 1.1 I & O for Last 24 hours: Intake & Output 03/18/21 03/19/21 03/20/21 03/21/21 23:59 23:59 23:59 23:59 Intake Total 420 / 420 1610 / 1610 360 / 360 Output Total 0 / 0 800 / 800 Balance 420 / 420 810 / 810 360 / 360 Weight 118.87 kg 118.87 kg 119 kg Microbiology Reports for the Last 24 Hours: Microbiology 03/18/21 14:31 Blood Blood Culture - Preliminary NO GROWTH AFTER 48 HOURS 03/18/21 14:31 Blood Blood Culture - Preliminary NO GROWTH AFTER 48 HOURS Assessment and Plan (1) Acute respiratory failure with hypoxia Status: Acute Category: Medical Code(s): J96.01 - Acute respiratory failure with hypoxia (2) Pneumonia due to COVID-19 virus Status: Acute Category: Medical Code(s): U07.1 - COVID-19; J12.82 - Pneumonia due to coronavirus disease 2019 (3) SHARONA (acute kidney injury) Status: Resolved Category: Medical Code(s): N17.9 - Acute kidney failure, unspecified (4) Hypertension Status: Acute Category: Medical Code(s): I10 - Essential (primary) hypertension (5) Hypomagnesemia Status: Resolved Category: Medical Code(s): E83.42 - Hypomagnesemia The patient's infection will respond to the chosen ABx?: Yes Is the patient receiving the right drug, dose, and route?: Yes Could a more targeted ABx be ordered?: No
--- NOTE | 2021-03-21 18:47 | PC.NURSE ---
Pt has been pleasant and cooperative this shift. A&O X4. No complaints of pain. Pt is currently receiving O2 via Vapotherm @ 40 LPM with sats. >90%. Lung sounds reveal expiratory rhonchi. No edema noted. Skin is C/D/I. Pt ambulates independently in the room and uses the BSC. Urine is clear and yellow. 1 large, brown stool today. Appetite is good and pt eats the majority of all meals. 20 G peripheral IV in the LT AC is patent and SL. VSS. Call light within reach. Will continue to monitor.
[2021-03-22] VITALS (10 sets, daily range): BP systolic 124–154; BP diastolic 51–87; PULSE 81–104; RESP 18–24; TEMP 36.6–37.1; O2SAT 89–100; BMI 39.6
--- NOTE | 2021-03-22 02:54 | PC.NURSE ---
Pt is A/O x4, no acute changes t/o shift. Pt denies any pain. Pt remains on vapotherm 40LPM with O2 stats >90%. Pt can use bedside commode independently. VSS, call light within reach, will continue to monitor.
[2021-03-22 07:16] LABS: Basophils % 0.4 % (0.1-2.0); Eosinophils % 0.1 % (0.1-12.0); Hematocrit 40.4 % (37.0-47.0); Hemoglobin 12.6 g/dL (12.2-16.2); Lymphocytes # 2.6 K/mm3 (0.7-4.5); Lymphocytes % 27.1 % (10-50); Mean Corpuscular HGB Conc 31.3 g/dL (31.8-35.4); Mean Corpuscular Hemoglobin 30.6 pg (27.0-31.2); Mean Corpuscular Volume 97.9 fl (81-99); Mean Platelet Volume 7.4 fl (7.4-10.4); Monocytes # 0.9 K/mm3 (0.1-1.0); Monocytes % 9.7 % (1.7-9.3); Neutrophils # 6.1 K/mm3 (1.8-7.8); Neutrophils % 62.7 % (37.0-80.0); Platelet Count 476 K/mm3 (142-424); Red Blood Count 4.12 M/mm3 (4.20-5.40); Red Cell Distribution Width 13.4 % (11.5-17.5); White Blood Count 9.7 K/mm3 (4.8-10.8)
[2021-03-22 07:35] LABS: Alanine Aminotransferase 28 U/L (12-78); Albumin Level 3.4 g/dl (3.5-5.0); Albumin/Globulin Ratio 1.1 (1.1-1.8); Alkaline Phosphatase 62 U/L (38-126); Anion Gap 8.6 mEq/L (5-15); Aspartate Amino Transferase 45 U/L (14-36); Bilirubin,Total 0.3 mg/dl (0.2-1.3); Blood Urea Nitrogen 15 mg/dl (7-17); Calcium 8.6 mg/dl (8.4-10.2); Carbon Dioxide 35 mmol/L (22.0-30.0); Chloride 98 mmol/L (98-107); Creatinine Clearance Estimated 98 mL/min (50-200); Estimated Glomerular Filt Rate 71 ml/min (>60); GFR (African American) 86 ML/MIN (>60); Globulin 3.2 g/dL (1.3-3.2); Glucose 90 mg/dl (74-100); Potassium 3.6 mmoL/L (3.5-5.1); Sodium 138 mmol/L (136-145); Total Protein,Serum 6.6 g/dl (6.3-8.2)
--- NOTE | 2021-03-22 08:07 | HMH.ACPN2 ---
Internal Medicine - PN: Subj *Date: 03/22/21 *Time: 08:07 Interval history: No acute events over the last 24 hours. Patient's O2 sats are in the high 90s and weaning from HFNC has begun with FiO2 recently turned down to 95%. Exam Vital signs and Labs for Last 24 Hours: Temp Pulse Resp BP Pulse Ox 98.8 F 84 18 154/85 H 100 03/22/21 04:00 03/22/21 05:20 03/22/21 04:00 03/22/21 04:00 03/22/21 05:20 Laboratory Results - last 24 hr 03/22/21 06:29: WBC 9.7 D, RBC 4.12 L, Hgb 12.6, Hct 40.4, MCV 97.9, MCH 30.6, MCHC 31.3 L, RDW 13.4, Plt Count 476 H, MPV 7.4, Neut % (Auto) 62.7, Lymph % (Auto) 27.1, [place] % (Auto) 9.7 H, Eos % (Auto) 0.1, Baso % (Auto) 0.4, Neut # (Auto) 6.1, Lymph # (Auto) 2.6, [place] # (Auto) 0.9, Eos # (Auto) 0.0, Baso # (Auto) 0.0 03/22/21 06:29: Sodium 138, Potassium 3.6, Chloride 98, Carbon Dioxide 35 H, Anion Gap 8.6, BUN 15, Creatinine 0.80, Estimated Creat Clear 98, Estimated GFR 71, Est GFR ( Amer) 86, Glucose 90, Calcium 8.6, Total Bilirubin 0.3, AST 45 H, ALT 28, Alkaline Phosphatase 62, Total Protein 6.6, Albumin 3.4 L, Globulin 3.2, Albumin/Globulin Ratio 1.1 I & O for Last 24 hours: Intake & Output 03/19/21 03/20/21 03/21/21 03/22/21 11:59 11:59 11:59 11:59 Intake Total 240 / 240 660 / 660 1250 / 1250 770 / 770 Output Total 0 / 0 800 / 800 Balance 240 / 240 660 / 660 450 / 450 770 / 770 Weight 262 lb 1 oz 262 lb 5.601 oz 261 lb 4 oz Microbiology Reports for the Last 24 Hours: Microbiology 03/20/21 08:00 Sputum - Expectorated Sputum Gram Stain - Final 03/20/21 08:00 Sputum - Expectorated Sputum Sputum Culture - Preliminary Narrative: Patient is sitting up on the side of the bed and looks comfortable. Lungs have some scattered rhonchi both anteriorly and posteriorly. Heart has regular rate and rhythm Assessment and Plan (1) Acute respiratory failure with hypoxia Status: Acute Category: Medical Code(s): J96.01 - Acute respiratory failure with hypoxia (2) Pneumonia due to COVID-19 virus Status: Acute Category: Medical Code(s): U07.1 - COVID-19; J12.82 - Pneumonia due to coronavirus disease 2019 (3) SHARONA (acute kidney injury) Status: Resolved Category: Medical Code(s): N17.9 - Acute kidney failure, unspecified (4) Hypertension Status: Acute Category: Medical Code(s): I10 - Essential (primary) hypertension (5) Hypomagnesemia Status: Resolved Category: Medical Code(s): E83.42 - Hypomagnesemia - Assessment and plan all Dx Assessment and Plan for all problems:: No change in patient plan of care other than continue to wean HFNC
--- NOTE | 2021-03-22 17:26 | PC.NURSE ---
Pt has been pleasant and cooperative this shift. A&O X4. No complaints of pain. Pt is currently receiving O2 via Vapotherm @ 40 LPM with sats. >90%. Lung sounds reveal expiratory rhonchi. No edema noted. Skin is C/D/I. Pt ambulates independently in the room and uses the BSC. Urine is clear and yellow. No BM thus far today. Appetite is good and pt eats the majority of all meals. 20 G peripheral IV in the LT AC is patent and SL. VSS. Call light within reach. Will continue to monitor.
[2021-03-23] VITALS (10 sets, daily range): BP systolic 115–152; BP diastolic 68–83; PULSE 81–103; RESP 14–20; TEMP 36.4–37.1; O2SAT 96–99
--- NOTE | 2021-03-23 04:38 | PC.NURSE ---
No acute changes t/o shift. Pt remains on Vapotherm 40 L/min 95% FIO2. Pt's O2 stats have remained in the high 90's. At beginning of shift pt had a dry cough. Pt denies any pain t/o shift. VSS, will continue to monitor.
[2021-03-23 07:05] LABS: Basophils # 0.1 K/mm3 (0-0.2); Basophils % 0.4 % (0.1-2.0); Eosinophils % 0.3 % (0.1-12.0); Hematocrit 40.5 % (37.0-47.0); Hemoglobin 12.7 g/dL (12.2-16.2); Lymphocytes # 3.2 K/mm3 (0.7-4.5); Lymphocytes % 27.4 % (10-50); Mean Corpuscular HGB Conc 31.3 g/dL (31.8-35.4); Mean Corpuscular Hemoglobin 30.5 pg (27.0-31.2); Mean Corpuscular Volume 97.4 fl (81-99); Mean Platelet Volume 7.3 fl (7.4-10.4); Monocytes % 8.5 % (1.7-9.3); Neutrophils # 7.5 K/mm3 (1.8-7.8); Neutrophils % 63.4 % (37.0-80.0); Platelet Count 507 K/mm3 (142-424); Red Blood Count 4.16 M/mm3 (4.20-5.40); Red Cell Distribution Width 13.2 % (11.5-17.5); White Blood Count 11.8 K/mm3 (4.8-10.8)
--- NOTE | 2021-03-23 07:13 | P.PN_ITS ---
Internal Medicine - PN: Subj *Date: 03/23/21 *Time: 07:13 Interval history: Patient complains of cough. No acute changes over the last 24 hours. O2 sats remained in the high 90s on high flow nasal cannula with FiO2 of 95%. Exam Vital signs and Labs for Last 24 Hours: Temp Pulse Resp BP Pulse Ox 97.8 F 89 18 115/68 97 03/23/21 04:00 03/23/21 06:04 03/23/21 04:00 03/23/21 04:00 03/23/21 06:05 Laboratory Results - last 24 hr 03/22/21 06:29: WBC 9.7 D, RBC 4.12 L, Hgb 12.6, Hct 40.4, MCV 97.9, MCH 30.6, MCHC 31.3 L, RDW 13.4, Plt Count 476 H, MPV 7.4, Neut % (Auto) 62.7, Lymph % (Auto) 27.1, [place] % (Auto) 9.7 H, Eos % (Auto) 0.1, Baso % (Auto) 0.4, Neut # (Auto) 6.1, Lymph # (Auto) 2.6, [place] # (Auto) 0.9, Eos # (Auto) 0.0, Baso # (Auto) 0.0 03/22/21 06:29: Sodium 138, Potassium 3.6, Chloride 98, Carbon Dioxide 35 H, Anion Gap 8.6, BUN 15, Creatinine 0.80, Estimated Creat Clear 98, Estimated GFR 71, Est GFR ( Amer) 86, Glucose 90, Calcium 8.6, Total Bilirubin 0.3, AST 45 H, ALT 28, Alkaline Phosphatase 62, Total Protein 6.6, Albumin 3.4 L, Globulin 3.2, Albumin/Globulin Ratio 1.1 I & O for Last 24 hours: Intake & Output 03/20/21 03/21/21 03/22/21 03/23/21 11:59 11:59 11:59 11:59 Intake Total 660 / 660 1250 / 1250 1010 / 1010 530 / 530 Output Total 800 / 800 Balance 660 / 660 450 / 450 1010 / 1010 530 / 530 Weight 262 lb 5.601 oz 261 lb 4 oz Microbiology Reports for the Last 24 Hours: Microbiology 03/20/21 08:00 Sputum - Expectorated Sputum Gram Stain - Final 03/20/21 08:00 Sputum - Expectorated Sputum Sputum Culture - Preliminary Narrative: Patient looks comfortable with no increased work of breathing. Diffuse rhonchi are present in the lung exam. Heart has a regular rate and rhythm. Abdomen is obese and soft. Assessment and Plan (1) Acute respiratory failure with hypoxia Status: Acute Category: Medical Code(s): J96.01 - Acute respiratory failure with hypoxia (2) Pneumonia due to COVID-19 virus Status: Acute Category: Medical Code(s): U07.1 - COVID-19; J12.82 - Pneumonia due to coronavirus disease 2019 (3) SHARONA (acute kidney injury) Status: Resolved Category: Medical Code(s): N17.9 - Acute kidney failure, unspecified (4) Hypertension Status: Acute Category: Medical Code(s): I10 - Essential (primary) hypertension (5) Hypomagnesemia Status: Resolved Category: Medical Code(s): E83.42 - Hypomagnesemia - Assessment and plan all Dx Assessment and Plan for all problems:: 1. Continue dexamethasone and baricitinib 2. Encourage incentive spirometry use which patient has not been doing 3. Ambulate as tolerated 4. Wean oxygen
[2021-03-23 07:14] LABS: Alanine Aminotransferase 37 U/L (12-78); Albumin Level 3.6 g/dl (3.5-5.0); Albumin/Globulin Ratio 1.1 (1.1-1.8); Alkaline Phosphatase 63 U/L (38-126); Anion Gap 9.6 mEq/L (5-15); Aspartate Amino Transferase 52 U/L (14-36); Bilirubin,Total 0.4 mg/dl (0.2-1.3); Blood Urea Nitrogen 16 mg/dl (7-17); Calcium 8.7 mg/dl (8.4-10.2); Carbon Dioxide 36 mmol/L (22.0-30.0); Chloride 96 mmol/L (98-107); Creatinine Clearance Estimated 98 mL/min (50-200); Estimated Glomerular Filt Rate 71 ml/min (>60); GFR (African American) 86 ML/MIN (>60); Globulin 3.3 g/dL (1.3-3.2); Glucose 86 mg/dl (74-100); Potassium 3.6 mmoL/L (3.5-5.1); Sodium 138 mmol/L (136-145); Total Protein,Serum 6.9 g/dl (6.3-8.2)
--- NOTE | 2021-03-23 09:35 | P.PN_ITS ---
Internal Medicine - PN: Subj *Date: 03/23/21 *Time: 09:35 Exam Vital signs and Labs for Last 24 Hours: Temp Pulse Resp BP Pulse Ox 97.5 F L 103 H 19 144/78 H 98 03/23/21 08:00 03/23/21 08:00 03/23/21 08:00 03/23/21 08:00 03/23/21 08:00 Laboratory Results - last 24 hr 03/23/21 06:26: WBC 11.8 H, RBC 4.16 L, Hgb 12.7, Hct 40.5, MCV 97.4, MCH 30.5, MCHC 31.3 L, RDW 13.2, Plt Count 507 H, MPV 7.3 L, Neut % (Auto) 63.4, Lymph % (Auto) 27.4, [place] % (Auto) 8.5, Eos % (Auto) 0.3, Baso % (Auto) 0.4, Neut # (Auto) 7.5, Lymph # (Auto) 3.2, [place] # (Auto) 1.0, Eos # (Auto) 0.0, Baso # (Auto) 0.1 03/23/21 06:26: Sodium 138, Potassium 3.6, Chloride 96 L, Carbon Dioxide 36 H, Anion Gap 9.6, BUN 16, Creatinine 0.80, Estimated Creat Clear 98, Estimated GFR 71, Est GFR ( Amer) 86, Glucose 86, Calcium 8.7, Total Bilirubin 0.4, AST 52 H, ALT 37 D, Alkaline Phosphatase 63, Total Protein 6.9, Albumin 3.6, Globulin 3.3 H, Albumin/Globulin Ratio 1.1 I & O for Last 24 hours: Intake & Output 03/20/21 03/21/21 03/22/21 03/23/21 23:59 23:59 23:59 23:59 Intake Total 1610 / 1610 890 / 890 770 / 770 240 / 240 Output Total 800 / 800 Balance 810 / 810 890 / 890 770 / 770 240 / 240 Weight 119 kg 118.501 kg Microbiology Reports for the Last 24 Hours: Microbiology 03/20/21 08:00 Sputum - Expectorated Sputum Gram Stain - Final 03/20/21 08:00 Sputum - Expectorated Sputum Sputum Culture - Final Normal Respiratory Shantel Assessment and Plan (1) Acute respiratory failure with hypoxia Status: Acute Category: Medical Code(s): J96.01 - Acute respiratory failure with hypoxia (2) Pneumonia due to COVID-19 virus Status: Acute Category: Medical Code(s): U07.1 - COVID-19; J12.82 - Pneumonia due to coronavirus disease 2019 (3) SHARONA (acute kidney injury) Status: Resolved Category: Medical Code(s): N17.9 - Acute kidney failure, unspecified (4) Hypertension Status: Acute Category: Medical Code(s): I10 - Essential (primary) hypertension (5) Hypomagnesemia Status: Resolved Category: Medical Code(s): E83.42 - Hypomagnesemia The patient's infection will respond to the chosen ABx?: Yes Is the patient receiving the right drug, dose, and route?: Yes Could a more targeted ABx be ordered?: No
--- NOTE | 2021-03-23 11:10 | HMH.PULMPN ---
Internal Medicine - PN: Subj *Date: 03/23/21 *Time: 14:49 Interval history: No acute respiratory events overnight. Patient admits improvement in her symptoms. Exam - Constitutional Constitutional:: Present: no acute distress, comfortable - HENMT Exam HENMT: Present: normocephalic, atraumatic - Eye Exam Eyes:: Present: normal appearance both eyes and related structures - Neck Exam Neck:: Present: normal visual inspection - Respiratory Exam Respiratory:: Present: able to speak in complete sentences, no respiratory distress, crackles - Cardiovascular Exam Cardiac:: Present: S1, S2 - GI Exam GI:: Present: soft - Skin Exam Skin: Present: warm, no rash - Neurological Exam Neurological: Present: alert, awake, normal cognition - Extremities Exam Extremities: Present: no cyanosis, no clubbing, no edema Assessment and Plan (1) Acute respiratory failure with hypoxia Status: Acute Category: Medical Code(s): J96.01 - Acute respiratory failure with hypoxia (2) Pneumonia due to COVID-19 virus Status: Acute Category: Medical Code(s): U07.1 - COVID-19; J12.82 - Pneumonia due to coronavirus disease 2019 (3) SHARONA (acute kidney injury) Status: Resolved Category: Medical Code(s): N17.9 - Acute kidney failure, unspecified (4) Hypertension Status: Acute Category: Medical Code(s): I10 - Essential (primary) hypertension (5) Hypomagnesemia Status: Resolved Category: Medical Code(s): E83.42 - Hypomagnesemia - Assessment and plan all Dx Assessment and Plan for all problems:: #Acute hypoxic respiratory failure: #COVID-19 pneumonia: CTA did not show any evidence of pulmonary embolism. Diffuse patchy groundglass opacities. Patient was initiated on ceftriaxone and azithromycin along with , dexamethasone and Barcitinib. Patient respiratory has been critical since admission needing high flow nasal cannula at 40 L 100%. CRP elevated to 120.2. Dimer elevated 0.73. Overall patient respiratory status has been improving since admission. We will closely monitor. Plan: -Continue high flow nasal cannula oxygen supplementation to maintain O2 saturation goal of 90% and above -wean as tolerated, decreased patient settings to 70% 35 L this morning. -Continue ceftriaxone azithromycinx 5 days for community-acquired pneumonia. Blood cultures no growth 48 hours. Sputum normal respiratory magan. -Continue dexamethasone and Barcitinib Transaminases and renal function continued to remain within normal limits. Unfortunately patient refused remdesivir. - F/U Lower extremity venous Doppler result -Continue Advair twice daily #Thank you involving pulmonary in this patient care. We will continue to follow.
--- NOTE | 2021-03-23 15:05 | DIET.NUTRFU ---
Pt PO intake 50% at last three meals. Will add dietary supplementation if PO intake decreases. Will continue to monitor.
--- NOTE | 2021-03-23 18:18 | PC.NURSE ---
Vapotherm currently on 35 L and 70%. Pt stable sitting on side of bed, pleasant and conversing. CB in reach. Educated on IS use.
[2021-03-24] VITALS (9 sets, daily range): BP systolic 96–146; BP diastolic 49–83; PULSE 67–108; RESP 16–24; TEMP 36.6–37; O2SAT 91–100; BMI 39.3
--- NOTE | 2021-03-24 03:40 | PC.NURSE ---
No acute changes t/o shift. Pt denies any pain. Vapotherm remains in place 35 L and 70%. Pt's O2 stat has remained in the high 90's. VSS, call light within reach.
[2021-03-24 07:10] LABS: Basophils # 0.1 K/mm3 (0-0.2); Basophils % 0.5 % (0.1-2.0); Eosinophils # 0.1 K/mm3 (0.0-0.4); Eosinophils % 0.6 % (0.1-12.0); Hematocrit 38.6 % (37.0-47.0); Hemoglobin 12.6 g/dL (12.2-16.2); Lymphocytes % 25.2 % (10-50); Mean Corpuscular HGB Conc 32.6 g/dL (31.8-35.4); Mean Corpuscular Hemoglobin 31.3 pg (27.0-31.2); Mean Corpuscular Volume 95.8 fl (81-99); Mean Platelet Volume 8.6 fl (7.4-10.4); Monocytes # 0.8 K/mm3 (0.1-1.0); Neutrophils % 66.7 % (37.0-80.0); Platelet Count 563 K/mm3 (142-424); Red Blood Count 4.03 M/mm3 (4.20-5.40); Red Cell Distribution Width 13.7 % (11.5-17.5); White Blood Count 11.9 K/mm3 (4.8-10.8)
[2021-03-24 07:13] LABS: Alanine Aminotransferase 37 U/L (12-78); Albumin Level 3.3 g/dl (3.5-5.0); Albumin/Globulin Ratio 1.1 (1.1-1.8); Alkaline Phosphatase 56 U/L (38-126); Anion Gap 7.9 mEq/L (5-15); Aspartate Amino Transferase 61 U/L (14-36); Bilirubin,Total 0.3 mg/dl (0.2-1.3); Blood Urea Nitrogen 18 mg/dl (7-17); Calcium 8.6 mg/dl (8.4-10.2); Carbon Dioxide 35 mmol/L (22.0-30.0); Chloride 98 mmol/L (98-107); Creatinine Clearance Estimated 97 mL/min (50-200); Estimated Glomerular Filt Rate 71 ml/min (>60); GFR (African American) 86 ML/MIN (>60); Globulin 3.1 g/dL (1.3-3.2); Glucose 87 mg/dl (74-100); Potassium 3.9 mmoL/L (3.5-5.1); Sodium 137 mmol/L (136-145); Total Protein,Serum 6.4 g/dl (6.3-8.2)
--- NOTE | 2021-03-24 07:27 | HMH.ACPN2 ---
Internal Medicine - PN: Subj *Date: 03/24/21 *Time: 07:27 Interval history: Patient feels like she is getting better. HFNC was decreased yesterday. Patient sats have remained in the mid to high 90s. Exam Vital signs and Labs for Last 24 Hours: Temp Pulse Resp BP Pulse Ox 98.6 F 85 20 139/79 96 03/24/21 04:00 03/24/21 06:04 03/24/21 04:00 03/24/21 04:00 03/24/21 06:04 Laboratory Results - last 24 hr 03/23/21 06:26: WBC 11.8 H, RBC 4.16 L, Hgb 12.7, Hct 40.5, MCV 97.4, MCH 30.5, MCHC 31.3 L, RDW 13.2, Plt Count 507 H, MPV 7.3 L, Neut % (Auto) 63.4, Lymph % (Auto) 27.4, [place] % (Auto) 8.5, Eos % (Auto) 0.3, Baso % (Auto) 0.4, Neut # (Auto) 7.5, Lymph # (Auto) 3.2, [place] # (Auto) 1.0, Eos # (Auto) 0.0, Baso # (Auto) 0.1 03/23/21 06:26: Sodium 138, Potassium 3.6, Chloride 96 L, Carbon Dioxide 36 H, Anion Gap 9.6, BUN 16, Creatinine 0.80, Estimated Creat Clear 98, Estimated GFR 71, Est GFR ( Amer) 86, Glucose 86, Calcium 8.7, Total Bilirubin 0.4, AST 52 H, ALT 37 D, Alkaline Phosphatase 63, Total Protein 6.9, Albumin 3.6, Globulin 3.3 H, Albumin/Globulin Ratio 1.1 03/24/21 06:08: WBC 11.9 H, RBC 4.03 L, Hgb 12.6, Hct 38.6, MCV 95.8, MCH 31.3 H, MCHC 32.6, RDW 13.7, Plt Count 563 H, MPV 8.6, Neut % (Auto) 66.7, Lymph % (Auto) 25.2, [place] % (Auto) 7.0, Eos % (Auto) 0.6, Baso % (Auto) 0.5, Neut # (Auto) 8.0 H, Lymph # (Auto) 3.0, [place] # (Auto) 0.8, Eos # (Auto) 0.1, Baso # (Auto) 0.1 03/24/21 06:08: Sodium 137, Potassium 3.9, Chloride 98, Carbon Dioxide 35 H, Anion Gap 7.9, BUN 18 H, Creatinine 0.80, Estimated Creat Clear 97, Estimated GFR 71, Est GFR ( Amer) 86, Glucose 87, Calcium 8.6, Total Bilirubin 0.3, AST 61 H, ALT 37, Alkaline Phosphatase 56, Total Protein 6.4, Albumin 3.3 L, Globulin 3.1, Albumin/Globulin Ratio 1.1 I & O for Last 24 hours: Intake & Output 03/21/21 03/22/21 03/23/21 03/24/21 11:59 11:59 11:59 11:59 Intake Total 1250 / 1250 1010 / 1010 770 / 770 480 / 480 Output Total 800 / 800 Balance 450 / 450 1010 / 1010 770 / 770 480 / 480 Weight 261 lb 4 oz 259 lb 9.6 oz Microbiology Reports for the Last 24 Hours: Microbiology 03/18/21 14:31 Blood Blood Culture - Final NO GROWTH AFTER 5 DAYS 03/18/21 14:31 Blood Blood Culture - Final NO GROWTH AFTER 5 DAYS 03/20/21 08:00 Sputum - Expectorated Sputum Gram Stain - Final 03/20/21 08:00 Sputum - Expectorated Sputum Sputum Culture - Final Normal Respiratory Shantel - Constitutional no acute distress - *Routine Respiratory Exam Present: rhonchi (Bilateral) - *Routine Cardiovascular Exam Present: RRR - *Routine Abdominal Exam Present: soft, normoactive bowel sounds. Absent: tenderness Assessment and Plan (1) Acute respiratory failure with hypoxia Status: Acute Category: Medical Code(s): J96.01 - Acute respiratory failure with hypoxia (2) Pneumonia due to COVID-19 virus Status: Acute Category: Medical Code(s): U07.1 - COVID-19; J12.82 - Pneumonia due to coronavirus disease 2019 (3) SHARONA (acute kidney injury) Status: Resolved Category: Medical Code(s): N17.9 - Acute kidney failure, unspecified (4) Hypertension Status: Acute Category: Medical Code(s): I10 - Essential (primary) hypertension (5) Hypomagnesemia Status: Resolved Category: Medical Code(s): E83.42 - Hypomagnesemia - Assessment and plan all Dx Assessment and Plan for all problems:: 1. Patient will be continued on dexamethasone and baricitinib for COVID-19 infection 2. Continue to wean HFNC back to nasal cannula
--- NOTE | 2021-03-24 09:31 | HMH.PULMPN ---
Internal Medicine - PN: Subj *Date: 03/24/21 *Time: 11:51 Interval history: No acute respiratory events overnight. Patient denies any significant improvement in her symptoms since yesterday. Exam - Constitutional Constitutional:: Absent: no acute distress, comfortable - HENMT Exam HENMT: Present: normocephalic, atraumatic - Eye Exam Eyes:: Present: normal appearance both eyes and related structures - Neck Exam Neck:: Present: normal visual inspection - Respiratory Exam Respiratory:: Present: able to speak in complete sentences, respiratory distress, crackles. Absent: wheezing - Cardiovascular Exam Cardiac:: Present: S1, S2 - GI Exam GI:: Present: soft - Skin Exam Skin: Present: warm, no rash - Neurological Exam Neurological: Present: alert, awake, normal cognition - Extremities Exam Extremities: Present: no cyanosis, no clubbing, edema Assessment and Plan (1) Acute respiratory failure with hypoxia Status: Acute Category: Medical Code(s): J96.01 - Acute respiratory failure with hypoxia (2) Pneumonia due to COVID-19 virus Status: Acute Category: Medical Code(s): U07.1 - COVID-19; J12.82 - Pneumonia due to coronavirus disease 2019 (3) SHARONA (acute kidney injury) Status: Resolved Category: Medical Code(s): N17.9 - Acute kidney failure, unspecified (4) Hypertension Status: Acute Category: Medical Code(s): I10 - Essential (primary) hypertension (5) Hypomagnesemia Status: Resolved Category: Medical Code(s): E83.42 - Hypomagnesemia - Assessment and plan all Dx Assessment and Plan for all problems:: #Acute hypoxic respiratory failure: #COVID-19 pneumonia: CTA did not show any evidence of pulmonary embolism. Diffuse patchy groundglass opacities. Patient was initiated on ceftriaxone and azithromycin along with , dexamethasone and Barcitinib. Patient respiratory has been critical since admission needing high flow nasal cannula at 40 L 100%. CRP elevated to 120.2. Dimer elevated 0.73.. No evidence of DVT Overall patient respiratory status remained stable from yesterday. Her saturations at 90% this morning. We could not wean her FiO2 at this point of time. We will closely monitor after diuresis and will wean as tolerated. Plan: -Lasix 40 IV once -Continue high flow nasal cannula oxygen supplementation to maintain O2 saturation goal of 90% and above -patient saturations today at 90% on 70% FiO2. We will continue to wean as tolerated. -Continue ceftriaxone azithromycinx 5 days for community-acquired pneumonia. Blood cultures no growth 48 hours. Sputum normal respiratory magan. -Continue dexamethasone and Barcitinib Transaminases and renal function continued to remain within normal limits. Unfortunately patient refused remdesivir -Continue Advair twice daily #Thank you involving pulmonary in this patient care. We will continue to follow.
[2021-03-25] VITALS (9 sets, daily range): BP systolic 100–151; BP diastolic 49–77; PULSE 72–111; RESP 20–22; TEMP 36.7–37.2; O2SAT 93–95; BMI 39.3
--- NOTE | 2021-03-25 03:57 | PC.NURSE ---
A&OX4. CONTINUES TO TOLERATE VAPOTHERM, NO CHANGES MADE THUS FAR. INDEPENDENT TO BEDSIDE COMMODE. NO C/O THUS FAR THIS SHIFT. VSS WILL CONTINUE TO MONITOR.
--- NOTE | 2021-03-25 06:56 | PC.NURSE ---
ASSIGNMENT ACCEPTED UNDER DURESS.
[2021-03-25 06:58] LABS: Basophils # 0.1 K/mm3 (0-0.2); Basophils % 0.6 % (0.1-2.0); Eosinophils # 0.1 K/mm3 (0.0-0.4); Eosinophils % 0.6 % (0.1-12.0); Hematocrit 38.8 % (37.0-47.0); Hemoglobin 12.5 g/dL (12.2-16.2); Lymphocytes # 2.7 K/mm3 (0.7-4.5); Mean Corpuscular HGB Conc 32.2 g/dL (31.8-35.4); Mean Corpuscular Hemoglobin 31.1 pg (27.0-31.2); Mean Corpuscular Volume 96.3 fl (81-99); Monocytes # 0.8 K/mm3 (0.1-1.0); Monocytes % 6.5 % (1.7-9.3); Neutrophils # 8.5 K/mm3 (1.8-7.8); Neutrophils % 70.3 % (37.0-80.0); Platelet Count 638 K/mm3 (142-424); Red Blood Count 4.03 M/mm3 (4.20-5.40); Red Cell Distribution Width 13.6 % (11.5-17.5); White Blood Count 12.1 K/mm3 (4.8-10.8)
[2021-03-25 07:13] LABS: Alanine Aminotransferase 40 U/L (12-78); Albumin Level 3.4 g/dl (3.5-5.0); Albumin/Globulin Ratio 1.1 (1.1-1.8); Alkaline Phosphatase 53 U/L (38-126); Anion Gap 9.9 mEq/L (5-15); Aspartate Amino Transferase 42 U/L (14-36); Bilirubin,Total 0.3 mg/dl (0.2-1.3); Blood Urea Nitrogen 22 mg/dl (7-17); Calcium 8.7 mg/dl (8.4-10.2); Carbon Dioxide 35 mmol/L (22.0-30.0); Chloride 97 mmol/L (98-107); Creatinine Clearance Estimated 97 mL/min (50-200); Estimated Glomerular Filt Rate 62 ml/min (>60); GFR (African American) 75 ML/MIN (>60); Glucose 90 mg/dl (74-100); Potassium 3.9 mmoL/L (3.5-5.1); Sodium 138 mmol/L (136-145); Total Protein,Serum 6.4 g/dl (6.3-8.2)
--- NOTE | 2021-03-25 07:14 | P.PN_ITS ---
Internal Medicine - PN: Subj *Date: 03/25/21 *Time: 07:14 Interval history: Patient remained stable. She remains on high flow nasal cannula. No acute changes over the last 24 hours Exam Vital signs and Labs for Last 24 Hours: Temp Pulse Resp BP Pulse Ox 98.6 F 85 20 122/68 94 L 03/25/21 04:00 03/25/21 06:14 03/25/21 04:00 03/25/21 04:00 03/25/21 06:14 Laboratory Results - last 24 hr 03/24/21 06:08: WBC 11.9 H, RBC 4.03 L, Hgb 12.6, Hct 38.6, MCV 95.8, MCH 31.3 H , MCHC 32.6, RDW 13.7, Plt Count 563 H, MPV 8.6, Neut % (Auto) 66.7, Lymph % (Auto) 25.2, [place] % (Auto) 7.0, Eos % (Auto) 0.6, Baso % (Auto) 0.5, Neut # (Auto) 8.0 H, Lymph # (Auto) 3.0, [place] # (Auto) 0.8, Eos # (Auto) 0.1, Baso # (Auto) 0.1 03/24/21 06:08: Sodium 137, Potassium 3.9, Chloride 98, Carbon Dioxide 35 H, Anion Gap 7.9, BUN 18 H, Creatinine 0.80, Estimated Creat Clear 97, Estimated GFR 71, Est GFR ( Amer) 86, Glucose 87, Calcium 8.6, Total Bilirubin 0.3, AST 61 H, ALT 37, Alkaline Phosphatase 56, Total Protein 6.4, Albumin 3.3 L, Globulin 3.1, Albumin/Globulin Ratio 1.1 I & O for Last 24 hours: Intake & Output 03/22/21 03/23/21 03/24/21 03/25/21 11:59 11:59 11:59 11:59 Intake Total 1010 / 1010 770 / 770 840 / 840 120 / 120 Output Total 400 / 400 Balance 1010 / 1010 770 / 770 840 / 840 -280 / -280 Weight 261 lb 4 oz 259 lb 9.6 oz 259 lb 7 oz - Constitutional no acute distress - *Routine Respiratory Exam Present: rhonchi - *Routine Cardiovascular Exam Present: RRR, Normal S1, Normal S2 Assessment and Plan (1) Acute respiratory failure with hypoxia Status: Acute Category: Medical Code(s): J96.01 - Acute respiratory failure with hypoxia (2) Pneumonia due to COVID-19 virus Status: Acute Category: Medical Code(s): U07.1 - COVID-19; J12.82 - Pneumonia due to coronavirus disease 2019 (3) SHARONA (acute kidney injury) Status: Resolved Category: Medical Code(s): N17.9 - Acute kidney failure, unspecified (4) Hypertension Status: Acute Category: Medical Code(s): I10 - Essential (primary) hypertension (5) Hypomagnesemia Status: Resolved Category: Medical Code(s): E83.42 - Hypomagnesemia - Assessment and plan all Dx Assessment and Plan for all problems:: 1. Continue Remdesivir and dexamethasone along with HFNC with goal sats of greater than 90%.
--- NOTE | 2021-03-25 09:34 | HMH.PULMPN ---
Internal Medicine - PN: Subj *Date: 03/25/21 *Time: 13:45 Interval history: No acute respiratory events overnight. Patient admits slight improvement in her symptoms. Exam - Constitutional Constitutional:: Present: no acute distress, comfortable - HENMT Exam HENMT: Present: normocephalic, atraumatic - Eye Exam Eyes:: Present: normal appearance both eyes and related structures - Neck Exam Neck:: Present: normal visual inspection - Respiratory Exam Respiratory:: Present: able to speak in complete sentences, respiratory distress, rales - Cardiovascular Exam Cardiac:: Present: S1, S2 - GI Exam GI:: Present: soft - Skin Exam Skin: Present: warm, no rash - Neurological Exam Neurological: Present: alert, awake, normal cognition - Extremities Exam Extremities: Present: no cyanosis, no clubbing, edema Assessment and Plan (1) Acute respiratory failure with hypoxia Status: Acute Category: Medical Code(s): J96.01 - Acute respiratory failure with hypoxia (2) Pneumonia due to COVID-19 virus Status: Acute Category: Medical Code(s): U07.1 - COVID-19; J12.82 - Pneumonia due to coronavirus disease 2019 (3) SHARONA (acute kidney injury) Status: Resolved Category: Medical Code(s): N17.9 - Acute kidney failure, unspecified (4) Hypertension Status: Acute Category: Medical Code(s): I10 - Essential (primary) hypertension (5) Hypomagnesemia Status: Resolved Category: Medical Code(s): E83.42 - Hypomagnesemia - Assessment and plan all Dx Assessment and Plan for all problems:: #Acute hypoxic respiratory failure: #COVID-19 pneumonia: CTA did not show any evidence of pulmonary embolism. Diffuse patchy groundglass opacities. Patient was initiated on ceftriaxone and azithromycin along with , dexamethasone and Barcitinib. Patient respiratory has been critical since admission needing high flow nasal cannula at 40 L 100%. CRP elevated to 120.2. Dimer elevated 0.73.. No evidence of DVT Overall patient respiratory status remained stable from yesterday. Her saturations at 90% this morning. We could not wean her FiO2 at this point of time. Received 40 of Lasix on 03/24 Plan: -CXR -Continue high flow nasal cannula oxygen supplementation to maintain O2 saturation goal of 90% and above-patient today at 35 L 65% saturating 90 to 91%. Will wean as tolerated. -Continue ceftriaxone azithromycinx 5 days for community-acquired pneumonia. Blood cultures no growth 48 hours. Sputum normal respiratory magan. -Continue dexamethasone and Barcitinib Transaminases and renal function continued to remain within normal limits. Unfortunately patient refused remdesivir -Continue Advair twice daily #Thank you involving pulmonary in this patient care. We will continue to follow.
--- NOTE | 2021-03-25 10:42 | DIET.NUTRFU ---
PO intake has increased at last three meals with a 67% average. Will continue with current nutritional plan and monitor.
--- NOTE | 2021-03-25 13:47 | XR_ITS ---
PROCEDURE: XR CHEST PORTABLE CLINICAL HISTORY: pnm Covid19 pneumonia COMPARISON: CR CXR1 CHEST-PORTABLE from 11/21/[address] ANGIO CHEST PE PROTOCOL from 03/18/2021 CR XR CHEST PORTABLE from 03/18/2021 FINDINGS: There is cardiomegaly without failure. Multifocal opacities noted in the mid lower lung zones consistent with Covid19 pneumonia which may be slightly improved on the right. The patient is moderately rotated. No obvious effusion. No evidence of pneumothorax. No acute bony abnormalities. IMPRESSION: Cardiomegaly with bilateral pneumonia which appears slightly improved on the right Dictated by: Shreyas Montgomery MD 03/25/2021 15:44 Shreyas Montgomery MD in [facility] 03/25/2021 15:44
--- NOTE | 2021-03-25 15:15 | PC.NURSE ---
Pt has been pleasant and cooperative this shift. A&O X4. No complaints of pain or SOA. Pt is currently receiving O2 via Vapotherm @ 35 LPM with sats. >90%. Lung sounds are diminished. No edema noted. Skin is C/D/I. Pt ambulates independently in the room and uses the BSC. Urine is clear and yellow. No BM thus far today. Appetite is good and pt eats the majority of all meals. 20 G peripheral IV in the LT AC is patent and SL. VSS. Call light within reach. Will continue to monitor.
[2021-03-26] VITALS (8 sets, daily range): BP systolic 98–134; BP diastolic 64–78; PULSE 65–97; RESP 16–22; TEMP 36.6–37.4; O2SAT 94–99; BMI 39.5
--- NOTE | 2021-03-26 03:11 | PC.NURSE ---
A&OX4. TOLERATING VAPOTHERM, 35L 60%. O2 SAT 95-96%. PT HAS HAD NO C/O THUS FAR. HAS BEEN SLEEPING MAJORITY OF SHIFT. PT DID REST PRONE AT BEGINNING OF SHIFT. UP INDEPENDENTLY TO BEDSIDE COMMODE. VSS WILL CONTINUE TO MONITOR.
[2021-03-26 06:24] LABS: Basophils # 0.1 K/mm3 (0-0.2); Basophils % 0.5 % (0.1-2.0); Eosinophils % 0.2 % (0.1-12.0); Hematocrit 39.8 % (37.0-47.0); Hemoglobin 12.3 g/dL (12.2-16.2); Lymphocytes # 1.8 K/mm3 (0.7-4.5); Lymphocytes % 15.6 % (10-50); Mean Corpuscular Hemoglobin 30.9 pg (27.0-31.2); Mean Corpuscular Volume 99.6 fl (81-99); Mean Platelet Volume 8.4 fl (7.4-10.4); Monocytes # 0.7 K/mm3 (0.1-1.0); Neutrophils % 77.6 % (37.0-80.0); Platelet Count 667 K/mm3 (142-424); Red Cell Distribution Width 13.7 % (11.5-17.5); White Blood Count 11.6 K/mm3 (4.8-10.8)
[2021-03-26 06:34] LABS: Alanine Aminotransferase 37 U/L (12-78); Albumin Level 3.2 g/dl (3.5-5.0); Albumin/Globulin Ratio 1.1 (1.1-1.8); Alkaline Phosphatase 48 U/L (38-126); Anion Gap 7.5 mEq/L (5-15); Aspartate Amino Transferase 36 U/L (14-36); Bilirubin,Total 0.4 mg/dl (0.2-1.3); Blood Urea Nitrogen 28 mg/dl (7-17); Calcium 8.7 mg/dl (8.4-10.2); Carbon Dioxide 35 mmol/L (22.0-30.0); Chloride 99 mmol/L (98-107); Creatinine Clearance Estimated 98 mL/min (50-200); Estimated Glomerular Filt Rate 55 ml/min (>60); GFR (African American) 66 ML/MIN (>60); Glucose 102 mg/dl (74-100); Potassium 4.5 mmoL/L (3.5-5.1); Sodium 137 mmol/L (136-145); Total Protein,Serum 6.2 g/dl (6.3-8.2)
--- NOTE | 2021-03-26 07:44 | HMH.ACPN2 ---
Internal Medicine - PN: Subj *Date: 03/26/21 *Time: 07:44 Interval history: Patient has no complaints this morning. No acute events over the last 24 hours. FiO2 on high flow nasal cannula has been weaned to 60% Exam Vital signs and Labs for Last 24 Hours: Temp Pulse Resp BP Pulse Ox 98 F 65 20 134/72 97 03/26/21 04:00 03/26/21 06:25 03/26/21 04:00 03/26/21 04:00 03/26/21 06:25 Laboratory Results - last 24 hr 03/25/21 06:23: WBC 12.1 H, RBC 4.03 L, Hgb 12.5, Hct 38.8, MCV 96.3, MCH 31.1, MCHC 32.2, RDW 13.6, Plt Count 638 H, MPV 9.0, Neut % (Auto) 70.3, Lymph % (Auto) 22.0, [place] % (Auto) 6.5, Eos % (Auto) 0.6, Baso % (Auto) 0.6, Neut # (Auto) 8.5 H, Lymph # (Auto) 2.7, [place] # (Auto) 0.8, Eos # (Auto) 0.1, Baso # (Auto) 0.1 03/26/21 06:08: WBC 11.6 H, RBC 4.00 L, Hgb 12.3, Hct 39.8, MCV 99.6 H, MCH 30.9, MCHC 31.0 L, RDW 13.7, Plt Count 667 H, MPV 8.4, Neut % (Auto) 77.6, Lymph % (Auto) 15.6, [place] % (Auto) 6.0, Eos % (Auto) 0.2, Baso % (Auto) 0.5, Neut # (Auto) 9.0 H, Lymph # (Auto) 1.8, [place] # (Auto) 0.7, Eos # (Auto) 0.0, Baso # (Auto) 0.1 03/26/21 06:08: Sodium 137, Potassium 4.5, Chloride 99, Carbon Dioxide 35 H, Anion Gap 7.5, BUN 28 H D, Creatinine 1.00, Estimated Creat Clear 98, Estimated GFR 55 L, Est GFR ( Amer) 66, Glucose 102 H, Calcium 8.7, Total Bilirubin 0.4, AST 36, ALT 37, Alkaline Phosphatase 48, Total Protein 6.2 L, Albumin 3.2 L, Globulin 3.0, Albumin/Globulin Ratio 1.1 I & O for Last 24 hours: Intake & Output 03/23/21 03/24/21 03/25/21 03/26/21 11:59 11:59 11:59 11:59 Intake Total 770 / 770 840 / 840 600 / 600 1130 / 1130 Output Total 1000 / 1000 Balance 770 / 770 840 / 840 -400 / -400 1130 / 1130 Weight 259 lb 9.6 oz 259 lb 7 oz 261 lb - Constitutional no acute distress - *Routine Respiratory Exam Present: rhonchi - *Routine Cardiovascular Exam Present: RRR Assessment and Plan (1) Acute respiratory failure with hypoxia Status: Acute Category: Medical Code(s): J96.01 - Acute respiratory failure with hypoxia (2) Pneumonia due to COVID-19 virus Status: Acute Category: Medical Code(s): U07.1 - COVID-19; J12.82 - Pneumonia due to coronavirus disease 2019 (3) SHARONA (acute kidney injury) Status: Resolved Category: Medical Code(s): N17.9 - Acute kidney failure, unspecified (4) Hypertension Status: Acute Category: Medical Code(s): I10 - Essential (primary) hypertension (5) Hypomagnesemia Status: Resolved Category: Medical Code(s): E83.42 - Hypomagnesemia - Assessment and plan all Dx Assessment and Plan for all problems:: 1. Continue Remdesivir, dexamethasone, baricitinib with continued attempts to wean high flow nasal cannula
--- NOTE | 2021-03-26 14:29 | HMH.PULMPN ---
Internal Medicine - PN: Subj *Date: 03/26/21 *Time: 14:29 Interval history: No acute respiratory events overnight. Patient continues to admit improvement in her symptoms Exam - Constitutional Constitutional:: Present: no acute distress, comfortable - HENMT Exam HENMT: Present: normocephalic, moist mucous membranes - Eye Exam Eyes:: Present: normal appearance both eyes and related structures - Neck Exam Neck:: Present: normal visual inspection - Respiratory Exam Respiratory:: Present: able to speak in complete sentences, respiratory distress, rales. Absent: wheezing - Cardiovascular Exam Cardiac:: Present: S1, S2 - Skin Exam Skin: Present: warm, no rash - Neurological Exam Neurological: Present: alert, awake, normal cognition - Extremities Exam Extremities: Present: no cyanosis, no clubbing, edema - Psychiatric Exam Psychiatric: Present: normal affect Assessment and Plan (1) Acute respiratory failure with hypoxia Status: Acute Category: Medical Code(s): J96.01 - Acute respiratory failure with hypoxia (2) Pneumonia due to COVID-19 virus Status: Acute Category: Medical Code(s): U07.1 - COVID-19; J12.82 - Pneumonia due to coronavirus disease 2019 (3) SHARONA (acute kidney injury) Status: Resolved Category: Medical Code(s): N17.9 - Acute kidney failure, unspecified (4) Hypertension Status: Acute Category: Medical Code(s): I10 - Essential (primary) hypertension (5) Hypomagnesemia Status: Resolved Category: Medical Code(s): E83.42 - Hypomagnesemia - Assessment and plan all Dx Assessment and Plan for all problems:: #Acute hypoxic respiratory failure: #COVID-19 pneumonia: CTA did not show any evidence of pulmonary embolism. Diffuse patchy groundglass opacities. Patient was initiated on ceftriaxone and azithromycin along with , dexamethasone and Barcitinib. Patient respiratory has been critical since admission needing high flow nasal cannula at 40 L 100%. CRP elevated to 120.2. Dimer elevated 0.73.. No evidence of DVT Patient respiratory status continued to improve with decreasing oxygen requirements, her FiO2 was decreased to 60% this morning. Saturations maintaining at 92 to 93%. We will continue current therapy and wean as tolerated. Patient received diuretics 0n 03/24. Plan: -CXR -Continue high flow nasal cannula oxygen supplementation to maintain O2 saturation goal of 90% -Continue ceftriaxone azithromycinx 5 days for community-acquired pneumonia. Blood cultures no growth 48 hours. Sputum normal respiratory magan. -Continue dexamethasone and Barcitinib Transaminases and renal function continued to remain within normal limits. Unfortunately patient refused remdesivir -Continue Advair twice daily #Thank you involving pulmonary in this patient care. We will continue to follow.
--- NOTE | 2021-03-26 16:27 | PC.NURSE ---
Pt has been pleasant and cooperative this shift. A&O X4. No complaints of pain or SOA. Pt is currently receiving O2 via Vapotherm @ 35 LPM/55% with sats. >90%. Lungs CTA. Dry, non-productive cough noted. No edema present. Skin is C/D/I. Pt ambulates independently in the room and uses the BSC. Urine is clear and yellow. No BM thus far today. Appetite is good and pt eats the majority of all meals. 20 G peripheral IV in the RT AC is patent and SL. VSS. Call light within reach. Will continue to monitor.
[2021-03-27] VITALS (9 sets, daily range): BP systolic 110–130; BP diastolic 56–75; PULSE 73–85; RESP 16–22; TEMP 36.5–37.8; O2SAT 91–99; BMI 40.1
--- NOTE | 2021-03-27 03:17 | PC.NURSE ---
Shift summary. No acute changes. Cooperative and pleasant t/o shift. Continues to receive O2 via vapotherm 35 L / 55%, tolerated well with sats above 95%. Dry non-productive cough noted. Proned for 2h at beginning of shift. Able to use BSC and ambulate in room independently. Pt has not voiced any complaints to staff. VSS. Call light within reach. Will continue to monitor.
[2021-03-27 06:13] LABS: Basophils # 0.1 K/mm3 (0-0.2); Basophils % 0.6 % (0.1-2.0); Eosinophils # 0.1 K/mm3 (0.0-0.4); Eosinophils % 0.7 % (0.1-12.0); Hematocrit 41.2 % (37.0-47.0); Hemoglobin 12.9 g/dL (12.2-16.2); Lymphocytes # 2.4 K/mm3 (0.7-4.5); Lymphocytes % 20.7 % (10-50); Mean Corpuscular HGB Conc 31.3 g/dL (31.8-35.4); Mean Corpuscular Hemoglobin 31.4 pg (27.0-31.2); Mean Corpuscular Volume 100.2 fl (81-99); Mean Platelet Volume 8.7 fl (7.4-10.4); Monocytes # 0.8 K/mm3 (0.1-1.0); Monocytes % 6.4 % (1.7-9.3); Neutrophils # 8.5 K/mm3 (1.8-7.8); Neutrophils % 71.6 % (37.0-80.0); Platelet Count 524 K/mm3 (142-424); Red Blood Count 4.11 M/mm3 (4.20-5.40); Red Cell Distribution Width 13.6 % (11.5-17.5); White Blood Count 11.8 K/mm3 (4.8-10.8)
[2021-03-27 06:21] LABS: Alanine Aminotransferase 34 U/L (12-78); Albumin Level 3.5 g/dl (3.5-5.0); Albumin/Globulin Ratio 1.2 (1.1-1.8); Alkaline Phosphatase 46 U/L (38-126); Anion Gap 11.3 mEq/L (5-15); Aspartate Amino Transferase 34 U/L (14-36); Bilirubin,Total 0.5 mg/dl (0.2-1.3); Blood Urea Nitrogen 27 mg/dl (7-17); Calcium 8.9 mg/dl (8.4-10.2); Carbon Dioxide 30 mmol/L (22.0-30.0); Chloride 100 mmol/L (98-107); Creatinine Clearance Estimated 99 mL/min (50-200); Estimated Glomerular Filt Rate 71 ml/min (>60); GFR (African American) 86 ML/MIN (>60); Globulin 2.9 g/dL (1.3-3.2); Glucose 82 mg/dl (74-100); Potassium 4.3 mmoL/L (3.5-5.1); Sodium 137 mmol/L (136-145); Total Protein,Serum 6.4 g/dl (6.3-8.2)
--- NOTE | 2021-03-27 07:15 | HMH.ACPN2 ---
Internal Medicine - PN: Subj *Date: 03/27/21 *Time: 07:15 Interval history: Patient reports feeling well. No acute events over the last 24 hours. She claims her cough is chronic due to allergies. Exam Vital signs and Labs for Last 24 Hours: Temp Pulse Resp BP Pulse Ox 97.7 F 75 16 125/67 97 03/27/21 03:39 03/27/21 03:39 03/27/21 03:39 03/27/21 03:39 03/27/21 06:34 Laboratory Results - last 24 hr 03/27/21 05:56: WBC 11.8 H, RBC 4.11 L, Hgb 12.9, Hct 41.2, MCV 100.2 H, MCH 31.4 H, MCHC 31.3 L, RDW 13.6, Plt Count 524 H, MPV 8.7, Neut % (Auto) 71.6, Lymph % (Auto) 20.7, [place] % (Auto) 6.4, Eos % (Auto) 0.7, Baso % (Auto) 0.6, Neut # (Auto) 8.5 H, Lymph # (Auto) 2.4, [place] # (Auto) 0.8, Eos # (Auto) 0.1, Baso # (Auto) 0.1 03/27/21 05:56: Sodium 137, Potassium 4.3, Chloride 100, Carbon Dioxide 30, Anion Gap 11.3, BUN 27 H, Creatinine 0.80, Estimated Creat Clear 99, Estimated GFR 71, Est GFR ( Amer) 86 D, Glucose 82, Calcium 8.9, Total Bilirubin 0.5, AST 34, ALT 34, Alkaline Phosphatase 46, Total Protein 6.4, Albumin 3.5, Globulin 2.9, Albumin/Globulin Ratio 1.2 I & O for Last 24 hours: Intake & Output 03/24/21 03/25/21 03/26/21 03/27/21 11:59 11:59 11:59 11:59 Intake Total 840 / 840 600 / 600 1250 / 1250 710 / 710 Output Total 1000 / 1000 0 / 0 Balance 840 / 840 -400 / -400 1250 / 1250 710 / 710 Weight 259 lb 9.6 oz 259 lb 7 oz 261 lb 264 lb 9.6 oz - Constitutional no acute distress - *Routine Respiratory Exam Present: rhonchi - *Routine Cardiovascular Exam Present: RRR - *Routine Abdominal Exam Present: soft, normoactive bowel sounds. Absent: tenderness Assessment and Plan (1) Acute respiratory failure with hypoxia Status: Acute Category: Medical Code(s): J96.01 - Acute respiratory failure with hypoxia (2) Pneumonia due to COVID-19 virus Status: Acute Category: Medical Code(s): U07.1 - COVID-19; J12.82 - Pneumonia due to coronavirus disease 2018 (3) SHARONA (acute kidney injury) Status: Resolved Category: Medical Code(s): N17.9 - Acute kidney failure, unspecified (4) Hypertension Status: Acute Category: Medical Code(s): I10 - Essential (primary) hypertension (5) Hypomagnesemia Status: Resolved Category: Medical Code(s): E83.42 - Hypomagnesemia - Assessment and plan all Dx Assessment and Plan for all problems:: 1. Continue to wean oxygen otherwise no change in plan of care
--- NOTE | 2021-03-27 08:42 | PC.NURSE ---
IS @ [facility] = [phone] this AM
--- NOTE | 2021-03-27 09:09 | HMH.PULMPN ---
Internal Medicine - PN: Subj *Date: 03/27/21 *Time: 12:27 Interval history: No acute respiratory events overnight. Patient respiratory status continued to improve and she admits improvement in her symptoms. Exam - Constitutional Constitutional:: Present: no acute distress, comfortable - HENMT Exam HENMT: Present: normocephalic, cushingoid faces - Eye Exam Eyes:: Present: normal appearance both eyes and related structures - Neck Exam Neck:: Present: normal visual inspection - Respiratory Exam Respiratory:: Present: able to speak in complete sentences, rales. Absent: wheezing - Cardiovascular Exam Cardiac:: Present: S1, S2 - GI Exam GI:: Present: soft - Skin Exam Skin: Present: warm - Neurological Exam Neurological: Present: alert, awake, normal cognition - Extremities Exam Extremities: Present: no cyanosis, no clubbing, edema Assessment and Plan (1) Acute respiratory failure with hypoxia Status: Acute Category: Medical Code(s): J96.01 - Acute respiratory failure with hypoxia (2) Pneumonia due to COVID-19 virus Status: Acute Category: Medical Code(s): U07.1 - COVID-19; J12.82 - Pneumonia due to coronavirus disease 2019 (3) SHARONA (acute kidney injury) Status: Resolved Category: Medical Code(s): N17.9 - Acute kidney failure, unspecified (4) Hypertension Status: Acute Category: Medical Code(s): I10 - Essential (primary) hypertension (5) Hypomagnesemia Status: Resolved Category: Medical Code(s): E83.42 - Hypomagnesemia - Assessment and plan all Dx Assessment and Plan for all problems:: #Acute hypoxic respiratory failure: #COVID-19 pneumonia: CTA did not show any evidence of pulmonary embolism. Diffuse patchy groundglass opacities. Patient was initiated on ceftriaxone and azithromycin along with , dexamethasone and Barcitinib. Patient respiratory has been critical since admission needing high flow nasal cannula at 40 L 100%. CRP elevated to 120.2. Dimer elevated 0.73.. No evidence of DVT Patient respiratory status continued to improve with decreasing oxygen requirements decreased to 30 L 55% this morning. We will continue to wean as tolerated to nasal cannula Plan: -Recommend discontinuing antibiotics as patient completed 5-day course of ceftriaxone and azithromycin. Blood cultures no growth 48 hours. Sputum normal respiratory magan. -Continue high flow nasal cannula oxygen supplementation to maintain O2 saturation goal of 90% -Continue dexamethasonex 10 days and Barcitinibx 14days Transaminases and renal function continued to remain within normal limits. She refused remdesivir -Continue Advair twice daily #Thank you involving pulmonary in this patient care. We will continue to follow.
--- NOTE | 2021-03-27 09:18 | SW/DCPLANNER ---
SPOKE WITH DR MCCRACKEN THIS MORNING ABOUT DISCHARGE PLANNING... PATIENT WILL NEED HOME 02 WHEN SHE IS READY TO GO HOME, PATIENT IS CURRENTLY ON VAPOTHERM AND WILL NEED A ROOM AIR.. IF PATIENT DOES DISCHARGE OVER THE WEEKEND, NURSING WILL ACCOMMODATE...
--- NOTE | 2021-03-27 11:12 | PC.NURSE ---
Pt weaned to 30L/ 45% by Dr. Campbell during rounds.
--- NOTE | 2021-03-27 11:34 | HMH.PTEV ---
Physical Therapy Evaluation Rehab PT IP Evaluation Start: 03/26/21 14:59 Freq: ONCE Status: Active Protocol: Document 03/27/21 11:29 PHORNE (Rec: 03/27/21 11:34 PHORNE [id number]) Subjective/History History History Pt is 70 year old female admitted to [facility] for Covid and pneumonia. Pt reports living alone in one level home with no steps. She reports prior use of a walker with no difficulty prior to admittance at [facility]. Eval completed by MEREDITH Nair. Subjective Subjective Pt reports feeling well this morning. Pt stated she would like to get out of bed and into bedside recliner with PT. Rehab PT IP Eval Objective Appearance Patient Behavior Appropriate,Cooperative Patient Orientation Place,Name,Birthday,Year Difficulty following instructions none Speech Pattern Clear,Appropriate,Coherent Ambulation Patient Able to Ambulate Yes Ambulation Observation IP General Gait Pattern Observation Wide Based Gait,Shuffling Step Ambulation Distance (feet) 15 Ambulation Assistive Device Rolling Walker Ambulation Ability Contact Guard/Hand Hold Balance Ability to Arise Able, uses arms to help Sitting Balance Steady, safe Standing Balance Steady, wide stance Dynamic Sitting Balance Ability Good Dynamic Standing Balance Ability Good Transfers Bed Transfer Ability Supervision/Stand by Chair Transfer Ability Contact Guard/Hand Hold Sit to Stand Bed Transfer Ability Supervision/Stand by ROM All Extremities PT ROM Status WFL MMT All Extremities PT MMT WFL Rehab PT IP prob,goals,plan Problems Date of Evaluation: 03/27/21 Discharge Plan PT Discharge Plan Pt would be safe to d/c home when medically stable. Pt is ambulating in her room with rolling walker at baseline. Pt does not need inpatient PT. G -code Required No Eval Complexity Eval Charge Codes 50078 - Moderate Complexity PHYSICIAN CERTIFICATION: I certify the specified therapy services for Darrell Wetzel are required, authorized, and reviewed every 30 days.
--- NOTE | 2021-03-27 12:22 | DIET.NUTRFU ---
Pt PO intake has continued to improve with an 81% average at the last four meals. Will continue with current nutritional plan and monitor.
[2021-03-28] VITALS (10 sets, daily range): BP systolic 117–154; BP diastolic 60–87; PULSE 70–96; RESP 18–20; TEMP 36.7–37.1; O2SAT 91–97; BMI 39.6
--- NOTE | 2021-03-28 03:57 | PC.NURSE ---
Patient is A&Ox4. Patient has rested well this shift and remains on vapotherm at 30L/45% scattered expiratory rhonchi noted. Patient states that her last BM was Tuesday or Tuesday of this week. VSS, call light within reach, will continue to monitor.
--- NOTE | 2021-03-28 08:26 | HMH.ACPN2 ---
Internal Medicine - PN: Subj *Date: 03/28/21 *Time: 08:26 Interval history: Patient reports feeling better. She denies shortness of breath. She continues to have cough that is mostly nonproductive. Exam Vital signs and Labs for Last 24 Hours: Temp Pulse Resp BP Pulse Ox 98.0 F 96 H 18 154/81 H 95 03/28/21 08:00 03/28/21 08:00 03/28/21 08:00 03/28/21 08:00 03/28/21 08:00 I & O for Last 24 hours: Intake & Output 03/25/21 03/26/21 03/27/21 03/28/21 11:59 11:59 11:59 11:59 Intake Total 600 / 600 1250 / 1250 1190 / 1190 480 / 480 Output Total 1000 / 1000 0 / 0 Balance -400 / -400 1250 / 1250 1190 / 1190 480 / 480 Weight 259 lb 7 oz 261 lb 264 lb 9.6 oz 261 lb 9 oz Narrative: Patient looks comfortable. She has some scattered rales. Heart has a regular rate and rhythm. Abdomen is soft. Assessment and Plan (1) Acute respiratory failure with hypoxia Status: Acute Category: Medical Code(s): J96.01 - Acute respiratory failure with hypoxia (2) Pneumonia due to COVID-19 virus Status: Acute Category: Medical Code(s): U07.1 - COVID-19; J12.82 - Pneumonia due to coronavirus disease 2019 (3) SHARONA (acute kidney injury) Status: Resolved Category: Medical Code(s): N17.9 - Acute kidney failure, unspecified (4) Hypertension Status: Acute Category: Medical Code(s): I10 - Essential (primary) hypertension (5) Hypomagnesemia Status: Resolved Category: Medical Code(s): E83.42 - Hypomagnesemia - Assessment and plan all Dx Assessment and Plan for all problems:: Attempted transition to simple nasal cannula at 6 L/min. Goal is to keep O2 sats greater than 90%. No change in medical regimen
--- NOTE | 2021-03-28 19:10 | PC.NURSE ---
Patient is A&O x3, lungs are diminished with audible wheezing. Pulses are equal. Patient tolerated meals well. Will ambulate to bedside commode. no new concerns.
[2021-03-29] VITALS (10 sets, daily range): BP systolic 110–140; BP diastolic 67–81; PULSE 67–104; RESP 16–20; TEMP 36.3–37; O2SAT 95–100; BMI 39.6
--- NOTE | 2021-03-29 02:38 | PC.NURSE ---
Patient is alert and oriented x4. She states that she feels better . Patient has rested well. Vapotherm remains at 30L/40%. Call light within reach, VSS, will continue to monitor.
--- NOTE | 2021-03-29 09:08 | HMH.ACPN2 ---
Internal Medicine - PN: Subj *Date: 03/29/21 *Time: 09:08 Interval history: Patient remained stable. HFNC has been reduced Exam Vital signs and Labs for Last 24 Hours: Temp Pulse Resp BP Pulse Ox 97.4 F L 76 20 140/67 97 03/29/21 04:00 03/29/21 04:00 03/29/21 04:00 03/29/21 04:00 03/29/21 04:00 I & O for Last 24 hours: Intake & Output 03/26/21 03/27/21 03/28/21 03/29/21 11:59 11:59 11:59 11:59 Intake Total 1250 / 1250 1190 / 1190 840 / 840 600 / 600 Output Total 0 / 0 500 / 500 Balance 1250 / 1250 1190 / 1190 840 / 840 100 / 100 Weight 261 lb 264 lb 9.6 oz 261 lb 9 oz 262 lb - Constitutional no acute distress Assessment and Plan (1) Acute respiratory failure with hypoxia Status: Acute Category: Medical Code(s): J96.01 - Acute respiratory failure with hypoxia (2) Pneumonia due to COVID-19 virus Status: Acute Category: Medical Code(s): U07.1 - COVID-19; J12.82 - Pneumonia due to coronavirus disease 2019 (3) SHARONA (acute kidney injury) Status: Resolved Category: Medical Code(s): N17.9 - Acute kidney failure, unspecified (4) Hypertension Status: Acute Category: Medical Code(s): I10 - Essential (primary) hypertension (5) Hypomagnesemia Status: Resolved Category: Medical Code(s): E83.42 - Hypomagnesemia - Assessment and plan all Dx Assessment and Plan for all problems:: Continue to wean HFNC
[2021-03-30] VITALS: BP 118/57; PULSE 85; RESP 18; TEMP 36.9; O2SAT 95
[2021-03-30 04:00] VITALS: BP 111/44; PULSE 64; RESP 18; TEMP 36.6; O2SAT 96
[2021-03-30 05:42] VITALS: BMI 40.0
[2021-03-30 06:10] VITALS: PULSE 80; PULSE 81; O2SAT 97
--- NOTE | 2021-03-30 06:41 | PC.NURSE ---
Patient has had an uneventful night this shift; remains on 4L NC with O2 sats >90. No s/s of acute distress noted, call light within reach, bed at lowest level for safety; will continue to monitor.
--- NOTE | 2021-03-30 07:04 | HMH.DCSUM ---
General - General Admission date:: 03/18/21 Discharge date: 03/30/21 HPI HPI: 70 year old female with nearly 2 weeks of URI symptoms attributed to allergies presented to the ER with increasing weakness over the preceding 48 hours and was found to be hypoxic. Further workup diagnosed Acute resp. failure due to Covid-19 pneumonia. Patient was intially placed on NC at 6L/min but since admission has been transitioned to maximum HFNC. Patient has not h/o lung disease but has HTN and is Obese. She denies SOA and cough has been mostly nonproductive. She has not recieved a Covid vaccine Hospital Course Hospital Course: Patient was admitted with acute respiratory failure due to COVID-19 pneumonia. She had to be placed on high flow nasal cannula shortly after admission to maintain O2 sats in the low 90s. Patient was started on Remdesivir, dexamethasone, nutritional supplementation as well as Rocephin and azithromycin. Patient remained stable on high flow nasal cannula. Pulmonology service was consulted and baricitinib was added to the patient's regimen. This was the patient's medical regimen until the day of discharge. Patient remained hospitalized for 11 days for her respiratory failure and Covid pneumonia. She remained on high flow nasal cannula until March 29 at which point she had was finally able to be weaned to simple nasal cannula. At discharge she was still requiring nasal cannula at 4 L/min and was discharged home with continued home oxygen. Patient had acute kidney injury that responded to IV fluids on admission. IV fluids were stopped once acute kidney injury had resolved. Patient was given home medications. Objective Vital signs: Temp Pulse Resp BP Pulse Ox 98 F 80 18 111/44 L 97 03/30/21 04:00 03/30/21 06:10 03/30/21 04:00 03/30/21 04:00 03/30/21 06:10 no acute distress - *Routine HEENT Exam Head: Present: normocephalic Eye: Present: EOMI, PERRL ENT: Present: mucous membranes moist - *Routine Neck Exam Present: supple - *Routine Respiratory Exam Present: CTA bilaterally - *Routine Cardiovascular Exam Present: RRR - *Routine Abdominal Exam Present: soft, normoactive bowel sounds. Absent: tenderness - *Routine Extremities Exam Absent: cyanosis, clubbing, edema - *Routine Skin Exam Present: warm. Absent: rash - Detailed Eye Exam Eyelids: Bilateral normal inspection DS: Diagnosis - Discharge Diagnosis (1) Acute respiratory failure with hypoxia Status: Acute (2) Pneumonia due to COVID-19 virus Status: Acute (3) SHARONA (acute kidney injury) Status: Resolved (4) Hypertension Status: Acute (5) Hypomagnesemia Status: Resolved Discharge Plan - Patient Discharge Instructions ACTIVITY: Continue current activity DIET: continue same diet Patient Instructions: Acute Kidney Injury, DI for Respiratory Failure, DI for COVID-19 (Suspected or Confirmed ), Nutrition and Hydration: [employer] in the Fight Against COVID-19 - Follow up Plan Follow up with: Panda Chester JR, MD [Primary Care Provider] - 1 week Disposition: Home, Self-Care Condition at discharge:: Improved Home Medications: Home Medications Medication Instructions Recorded Confirmed Type Flurbiprofen 100 mg PO BID 03/19/21 03/19/21 History Solifenacin Succinate 10 mg PO DAILY 03/19/21 03/19/21 History cilostazoL [Pletal 100mg tablet] 100 mg PO BID 03/19/21 03/19/21 History lisinopriL [Lisinopril] 10 mg PO DAILY 03/19/21 03/19/21 History metOLazone [Metolazone 5mg Tab] 5 mg PO DAILY 03/19/21 03/19/21 History Prescriptions/Medication Reconciliation: Continued Solifenacin Succinate 10 mg PO DAILY lisinopriL [Lisinopril] 10 mg PO DAILY metOLazone [Metolazone 5mg Tab] 5 mg PO DAILY Flurbiprofen 100 mg PO BID cilostazoL [Pletal 100mg tablet] 100 mg PO BID - Problem Reconciliation Problems Reviewed?: Yes
--- NOTE | 2021-03-30 10:30 | PC.NURSE ---
room air saturation 89%
--- NOTE | 2021-03-30 11:36 | SW/DCPLANNER ---
SET PATIENT UP WITH HOME 02 WITH ETTA TO BE DELIVERED TO HER DAUGHTERS HOME, [facility] [address].. MS [facility] WILL BE STAYING WITH HER DAUGHTER UNTIL SHE CAN GET FULLY RECUPERATED.. ALSO DAUGHTER [facility] WILL START IN THE AM... A PORTABLE TANK WILL BE DELIVERED TO HER ROOM PRIOR TO DISCHARGE...DAUGHTER WILL BE TRANSPORTING PATIENT HOME...
== END 2021-03-30 11:22 | disposition home or self-care (01) | DRG 177 ==
LOC: ER 14:48 → 2ND 18:14
PROVIDERS: Family Medicine; Internal Medicine Pulmonary Disease; Admitting Provider Emergency Medicine; Emergency Provider Orthopaedic Surgery Pediatric Orthopaedic Surgery; PCP Family Medicine; Visit Provider Family Medicine
DX: U07.1 COVID-19 (principal); J12.82 Pneumonia due to coronavirus disease 2019; J96.01 Acute respiratory failure with hypoxia; N17.9 Acute kidney failure, unspecified; Z87.891 Personal history of nicotine dependence; M19.90 Unspecified osteoarthritis, unspecified site; E83.42 Hypomagnesemia; Z66 Do not resuscitate; I10 Essential (primary) hypertension
CPT/HCPCS: 36415; 71045; 71275; 80048; 80053; 82728; 82803; 83605; 83735; 85025; 85378; 86140; 87040; 87070; 87205; 93970; 94640; 94760; 94761; 96365; 96366; 97162; 99284; C9803; J0456; Q9967; U0003; U0005

== ENCOUNTER → 2022-08-26 11:41 | Outpatient (CLI) | payer MEDICARE, SELFPAY ==
--- NOTE | 2022-08-26 11:45 | XR_ITS ---
FINAL REPORT CLINICAL HISTORY: dyspnea post covid COMPARISON: 03/25/2021 FINDINGS: 2 views of the chest were obtained . The heart is normal in size. The mediastinum is within normal limits. There is mild left base atelectasis or scarring. There is no pneumothorax. Osseous structures are unremarkable. IMPRESSION: Mild left base atelectasis or scarring. Reviewed, Interpreted and Dictated by Jus Everett III, MD Transcribed by Aleisha Ga Authenticated and [facility]
[2022-08-26 14:25] LABS: Basophils # 0.1 K/mm3 (0-0.2); Basophils % 1.3 % (0.1-2.0); Eosinophils # 0.4 K/mm3 (0.0-0.4); Eosinophils % 4.7 % (0.1-12.0); Hematocrit 45.1 % (37.0-47.0); Lymphocytes # 2.8 K/mm3 (0.7-4.5); Lymphocytes % 30.9 % (10-50); Mean Corpuscular HGB Conc 30.9 g/dL (31.8-35.4); Mean Corpuscular Hemoglobin 30.8 pg (27.0-31.2); Mean Corpuscular Volume 99.5 fl (81-99); Mean Platelet Volume 8.8 fl (7.4-10.4); Monocytes # 0.5 K/mm3 (0.1-1.0); Neutrophils # 5.1 K/mm3 (1.8-7.8); Neutrophils % 57.1 % (37.0-80.0); Platelet Count 367 K/mm3 (142-424); Red Blood Count 4.53 M/mm3 (4.20-5.40); Red Cell Distribution Width 13.4 % (11.5-17.5); White Blood Count 8.9 K/mm3 (4.8-10.8)
[2022-08-26 15:05] LABS: Alanine Aminotransferase 18 U/L (12-78); Albumin/Globulin Ratio 1.5 (1.1-1.8); Alkaline Phosphatase 62 U/L (38-126); Aspartate Amino Transferase 25 U/L (14-36); Bilirubin,Total 0.6 mg/dl (0.2-1.3); Blood Urea Nitrogen 32 mg/dl (7-17); Calcium 9.8 mg/dl (8.4-10.2); Carbon Dioxide 30 mmol/L (22.0-30.0); Chloride 106 mmol/L (98-107); Chol/HDL Ratio 3.7 (1-3.5); Cholesterol 185 mg/dl (140-200); Estimated Glomerular Filt Rate 44 ml/min (>60); GFR (African American) 54 ML/MIN (>60); Globulin 2.7 g/dL (1.3-3.2); Glucose 109 mg/dl (74-100); HDL Cholesterol 50 mg/dl (40-60); Sodium 138 mmol/L (136-145); Total Protein,Serum 6.7 g/dl (6.3-8.2); Triglycerides 201 mg/dl (30-150); VLDL Cholesterol 40 mg/dL (0-40)
[2022-08-26 15:16] LABS: Direct LDL Cholesterol 70.94 mg/dL (100-129)
[2022-08-26 15:22] LABS: 25-OH Vitamin D, Total 45.7 ng/mL (30-100)
[2022-08-26 15:36] LABS: Thyroid Stimulating Hormone 1.65 uIU/mL (0.465-4.68)
== END ==
PROVIDERS: PCP Physician Assistant; Visit Provider Physician Assistant
DX: R06.00 Dyspnea, unspecified (principal); U09.9 Post COVID-19 condition, unspecified; N17.9 Acute kidney failure, unspecified; E55.9 Vitamin D deficiency, unspecified; K59.00 Constipation, unspecified; R53.83 Other fatigue; E03.9 Hypothyroidism, unspecified
CPT/HCPCS: 71046; 80053; 80061; 82306; 84443; 85025

== ENCOUNTER → 2022-09-28 14:12 | Outpatient (CLI) | payer MEDICARE, SELFPAY ==
--- NOTE | 2022-09-28 14:12 | MM_ITS ---
PROCEDURE INFORMATION: Exam: MG Bilateral Screening 3D Mammography Exam date and time: 09/28/2022 2:13 PM Age: 71 years old Clinical indication: Screening examination TECHNIQUE: Imaging protocol: Bilateral Screening tomosynthesis and 2D mammography including computer-aided detection (CAD) when performed. COMPARISON: 1. MG ANGELY SCRN MAMMO W/CAD BILAT 12/12/2019 2:46 PM 2. MG ANGELY SCRN MAMMO W/CAD BILAT 10/25/2018 12:11 PM FINDINGS: MAMMOGRAPHY: Breast composition: There are scattered areas of fibroglandular density. Mass: None. Architectural distortion: None. Calcifications: No suspicious calcifications. Asymmetric density: None. Skin thickening: None. Axillary adenopathy: None. IMPRESSION: No mammographic evidence of malignancy. Annual screening is recommended unless otherwise clinically indicated. ASSESSMENT: BI-RADS Category 1: Negative
== END ==
PROVIDERS: PCP Physician Assistant; Visit Provider Physician Assistant
DX: Z12.31 Encounter for screening mammogram for malignant neoplasm of breast (principal)
CPT/HCPCS: 77063; 77067

== ENCOUNTER → 2023-04-27 15:55 | Outpatient (CLI) | payer MEDICARE, SELFPAY ==
[2023-04-27 14:42] LABS: Basophils % 0.3 % (0.1-2.0); Eosinophils # 0.3 K/mm3 (0.0-0.4); Eosinophils % 3.3 % (0.1-12.0); Hematocrit 45.8 % (37.0-47.0); Hemoglobin 15.3 g/dL (12.2-16.2); Lymphocytes # 2.5 K/mm3 (0.7-4.5); Lymphocytes % 28.2 % (10-50); Mean Corpuscular HGB Conc 33.5 g/dL (31.8-35.4); Mean Corpuscular Hemoglobin 31.5 pg (27.0-31.2); Mean Corpuscular Volume 94.2 fl (81-99); Mean Platelet Volume 8.5 fl (7.4-10.4); Monocytes # 0.5 K/mm3 (0.1-1.0); Monocytes % 5.5 % (1.7-9.3); Neutrophils # 5.6 K/mm3 (1.8-7.8); Neutrophils % 62.8 % (37.0-80.0); Platelet Count 277 K/mm3 (142-424); Red Blood Count 4.86 M/mm3 (4.20-5.40); Red Cell Distribution Width 13.6 % (11.5-17.5); White Blood Count 8.9 K/mm3 (4.8-10.8)
[2023-04-27 15:05] LABS: Alanine Aminotransferase 19 U/L (12-78); Albumin Level 4.2 g/dl (3.5-5.0); Albumin/Globulin Ratio 1.4 (1.1-1.8); Alkaline Phosphatase 87 U/L (38-126); Anion Gap 15.5 mEq/L (5-15); Aspartate Amino Transferase 28 U/L (14-36); Bilirubin,Total 0.5 mg/dl (0.2-1.3); Blood Urea Nitrogen 22 mg/dl (7-17); Calcium 9.3 mg/dl (8.4-10.2); Carbon Dioxide 29 mmol/L (22.0-30.0); Chloride 99 mmol/L (98-107); Chol/HDL Ratio 3.9 (1-3.5); Cholesterol 192 mg/dl (140-200); Estimated Glomerular Filt Rate 62 ml/min (>60); GFR (African American) 74 ML/MIN (>60); Globulin 2.9 g/dL (1.3-3.2); Glucose 95 mg/dl (74-100); HDL Cholesterol 49 mg/dl (40-60); Potassium 3.5 mmoL/L (3.5-5.1); Sodium 140 mmol/L (136-145); Total Protein,Serum 7.1 g/dl (6.3-8.2); Triglycerides 167 mg/dl (30-150); VLDL Cholesterol 33 mg/dL (0-40)
[2023-04-27 15:17] LABS: Direct LDL Cholesterol 87.06 mg/dL (100-129)
[2023-04-27 15:22] LABS: 25-OH Vitamin D, Total 46.3 ng/mL (30-100)
[2023-04-27 15:37] LABS: Thyroid Stimulating Hormone 1.27 uIU/mL (0.465-4.68)
== END ==
PROVIDERS: PCP Physician Assistant; Visit Provider Physician Assistant
DX: I10 Essential (primary) hypertension (principal); R06.00 Dyspnea, unspecified; U09.9 Post COVID-19 condition, unspecified; E55.9 Vitamin D deficiency, unspecified; Z68.41 Body mass index [BMI] 40.0-44.9, adult; Z87.891 Personal history of nicotine dependence
CPT/HCPCS: 80053; 80061; 82306; 84443; 85025

== ENCOUNTER → 2023-06-22 12:12 | Outpatient (CLI) | payer MEDICARE, SELFPAY ==
--- NOTE | 2023-06-22 12:17 | XR_ITS ---
FINAL REPORT CLINICAL HISTORY: knee pain FINDINGS: Right knee Two views were obtained. There is no acute fracture or dislocation. There are advanced hypertrophic changes at the medial and lateral joint margins. There is subluxation of the tibia relative to the distal femur. Prominent osteophyte formation is seen along the undersurface of the patella. IMPRESSION: Advanced changes of osteoarthritis. Reviewed, Interpreted and Dictated by Compa Childs MD Transcribed by Beatrice Hairston Authenticated and [facility]
--- NOTE | 2023-06-22 12:17 | XR_ITS ---
FINAL REPORT CLINICAL HISTORY: knee pain FINDINGS: Left knee Two views were obtained. There is no acute fracture or dislocation. There are advanced hypertrophic changes at the medial and lateral joint margins. There is subluxation of the tibia relative to the distal femur. Prominent osteophyte formation is seen along the undersurface of the patella. IMPRESSION: Advanced changes of osteoarthritis. Reviewed, Interpreted and Dictated by Compa Childs MD Transcribed by Beatrice Hairston Authenticated and [facility]
[2023-06-22 19:37] LABS: Amphetamine/Metha Screen,Urine Negative ng/ml (<1000); Benzodiazepines Screen,Urine Negative ng/ml (<200)
[2023-06-22 19:38] LABS: Cannabinoid Screen,Urine Negative ng/ml (<50)
[2023-06-22 19:39] LABS: Barbiturates Screen,Urine Negative ng/ml (<200); Cocaine Screen,Urine Negative ng/ml (<300)
[2023-06-22 19:40] LABS: Methadone Screen,Urine Negative ng/ml (<300); Opiate Screen,Urine Negative ng/ml (<300)
[2023-06-22 19:43] LABS: Phencyclidine Screen,Urine Negative ng/ml (<25)
== END ==
PROVIDERS: PCP Physician Assistant; Visit Provider Family Medicine
DX: M19.90 Unspecified osteoarthritis, unspecified site (principal); Z79.899 Other long term (current) drug therapy
CPT/HCPCS: 73560; 80305

== ENCOUNTER → 2023-06-22 23:23 | Outpatient (CLI) | payer MEDICARE, SELFPAY | LOC: LAB.DROPOF 23:23 | PROVIDERS: PCP Physician Assistant; Visit Provider Family Medicine | DX: Z79.899 Other long term (current) drug therapy (principal) ==

== ENCOUNTER 2023-10-21 11:00 | Outpatient (CLI) | payer MEDICARE, SELFPAY ==
--- NOTE | 2023-10-21 11:01 | MM_ITS ---
PROCEDURE INFORMATION: Exam: MG Bilateral Screening 3D Mammography Exam date and time: 10/21/2023 10:49 AM Age: 72 years old Clinical indication: Screening examination TECHNIQUE: Imaging protocol: Bilateral Screening tomosynthesis and 2D mammography including computer-aided detection (CAD) when performed. COMPARISON: 1. MG MM DIG SCREENING MAMM BI W/CAD 09/28/2022 2:13 PM 2. MG ANGELY SCRN MAMMO W/CAD BILAT 12/12/2019 2:46 PM FINDINGS: MAMMOGRAPHY: Breast composition: The breasts are almost entirely fatty. Mass: None. Architectural distortion: None. Calcifications: No suspicious calcifications. Asymmetric density: None. Skin thickening: None. Axillary adenopathy: None. IMPRESSION: No mammographic evidence of malignancy. Annual screening is recommended unless otherwise clinically indicated. ASSESSMENT: BI-RADS Category 1: Negative
== END 2023-10-21 23:59 ==
LOC: RAD 11:01
PROVIDERS: PCP Internal Medicine; Visit Provider Internal Medicine
DX: Z12.31 Encounter for screening mammogram for malignant neoplasm of breast (principal)
CPT/HCPCS: 77063; 77067

== ENCOUNTER 2023-12-07 11:26 | Outpatient (CLI) | payer MEDICARE, SELFPAY ==
--- NOTE | 2023-12-07 11:26 | US_ITS ---
FINAL REPORT CLINICAL HISTORY: itching, decreased pulses left foot, previous smoker, HTN, bilateral claudication, left purple foot x 1 month, obesity. COMPARISON: None FINDINGS: ANKLE-BRACHIAL PRESSURE INDICES Pressure indices are as follows: RIGHT LOWER EXTREMITY: Ankle-brachial pressure index: 1.1 Comments: Normal LEFT LOWER EXTREMITY: Ankle-brachial pressure index: 1.1 Comments: Normal CONCLUSION: No evidence of significant obstructive peripheral vascular disease of the lower extremities Reviewed, Interpreted and Dictated by Jus Everett III, MD Transcribed by Bonnie Verdin Authenticated and . [facility]
== END 2023-12-07 23:59 | disposition home or self-care (01) ==
LOC: RT 11:26
PROVIDERS: PCP Physician Assistant; Visit Provider Physician Assistant
DX: R09.89 Other specified symptoms and signs involving the circulatory and respiratory systems (principal)
CPT/HCPCS: 93923

== ENCOUNTER 2024-01-02 12:16 | Outpatient (CLI) | payer MEDICARE, SELFPAY ==
--- NOTE | 2024-01-02 12:35 | CT_ITS ---
FINAL REPORT TECHNIQUE: Postcontrast images of the pelvis and left lower extremity was performed by computed tomography. Extensive 3-D reconstruction images were performed. A CTA was performed. This study was performed with techniques to keep radiation doses as low as reasonably achievable (ALARA). Individualized dose reduction techniques using automated exposure control or adjustment of mA and/or kV according to the patient's size were employed. CLINICAL HISTORY: venous stasis left leg COMPARISON: None FINDINGS: CTA: The small portion of the abdominal aorta is normal in caliber. There is no significant stenosis. There is no significant calcification. LEFT lower extremity: The iliac vessels are unremarkable. The femoral vessels are unremarkable. The SFA is without significant stenosis. The popliteal artery is unremarkable. The trifurcation is unremarkable. The evaluation of the distal lower leg is limited secondary to timing of the runoff bolus. IMPRESSION: No significant peripheral vascular disease in the left lower extremity, however there is somewhat limited visualization of the distal lower leg vessel secondary to timing of the runoff bolus. Severe degenerative change of the left knee.. Reviewed, Interpreted and Dictated by Jus Everett III, MD Transcribed by Bonnie Verdin Authenticated and [facility]
[2024-01-02 12:54] LABS: Blood Urea Nitrogen 22 mg/dl (7-17); Estimated Glomerular Filt Rate 49 ml/min (>60); GFR (African American) 59 ML/MIN (>60)
[2024-01-02] MEDS: 0.9 % SODIUM CHLORIDE 50 ML VIAL IV (13:54)
[2024-01-02] MEDS: SODIUM CHLORIDE 0.9% 10ML SYR (RAD ONLY) 10 ML IV (13:54)
[2024-01-02] MEDS: IOPAMIDOL-370 (76%);100ML BOTTLE 100 ML IV (13:54)
== END 2024-01-02 23:59 | disposition home or self-care (01) ==
LOC: RAD 12:17
PROVIDERS: PCP Physician Assistant; Visit Provider Physician Assistant
DX: I10 Essential (primary) hypertension (principal); I87.2 Venous insufficiency (chronic) (peripheral); Z87.891 Personal history of nicotine dependence
CPT/HCPCS: 36415; 73706; 82565; 84520; Q9967

== ENCOUNTER 2024-10-17 16:25 | Outpatient (CLI) | payer MEDICARE, SELFPAY ==
[2024-10-17 18:23] LABS: Basophils # 0.1 K/mm3 (0-0.2); Basophils % 0.6 % (0.1-2.0); Eosinophils # 0.2 K/mm3 (0.0-0.4); Eosinophils % 1.6 % (0.1-12.0); Hematocrit 43.5 % (37.0-47.0); Hemoglobin 14.4 g/dL (12.2-16.2); Lymphocytes # 2.4 K/mm3 (0.7-4.5); Lymphocytes % 24.3 % (10-50); Mean Corpuscular HGB Conc 33.1 g/dL (31.8-35.4); Mean Corpuscular Hemoglobin 30.4 pg (27.0-31.2); Mean Platelet Volume 11.1 fl (7.4-10.4); Monocytes # 0.9 K/mm3 (0.1-1.0); Monocytes % 8.9 % (1.7-9.3); Neutrophils # 6.5 K/mm3 (1.8-7.8); Neutrophils % 64.4 % (37.0-80.0); Nucleated Red Blood Cells # 0 10^3/uL; Nucleated Red Blood Cells % 0 %; Platelet Count 193 K/mm3 (142-424); Red Blood Count 4.73 M/mm3 (4.20-5.40); Red Cell Distribution Width 13.7 % (11.5-17.5); Red Cell Distribution Width-SD 46.4 fL
[2024-10-17 19:17] LABS: Albumin Level 3.9 g/dl (3.5-5.0); Chloride 98 mmol/L (98-107); Potassium 3.9 mmoL/L (3.5-5.1); Sodium 139 mmol/L (136-145)
[2024-10-17 19:20] LABS: Alanine Aminotransferase 16 U/L (12-78); Albumin/Globulin Ratio 1.3 (1.1-1.8); Alkaline Phosphatase 78 U/L (38-126); Anion Gap 12.9 mEq/L (5-15); Aspartate Amino Transferase 23 U/L (14-36); Bilirubin,Total 0.5 mg/dl (0.2-1.3); Blood Urea Nitrogen 23 mg/dl (7-17); Calcium 9.3 mg/dl (8.4-10.2); Carbon Dioxide 32 mmol/L (22.0-30.0); Cholesterol 165 mg/dl (140-200); Estimated Glomerular Filt Rate 61 ml/min (>60); GFR (African American) 74 ML/MIN (>60); Globulin 3.1 g/dL (1.3-3.2); Glucose 85 mg/dl (74-100); Triglycerides 194 mg/dl (30-150); VLDL Cholesterol 39 mg/dL (0-40)
[2024-10-17 19:21] LABS: Chol/HDL Ratio 3.8 (1-3.5); HDL Cholesterol 43 mg/dl (40-60)
== END 2024-10-17 23:59 | disposition home or self-care (01) ==
LOC: LAB.DROPOF 10-18 09:41
PROVIDERS: PCP Family Medicine; Visit Provider Family Medicine
DX: E55.9 Vitamin D deficiency, unspecified (principal); I10 Essential (primary) hypertension
CPT/HCPCS: 80053; 80061; 82306; 84443; 85025

== ENCOUNTER 2024-11-14 13:52 | Outpatient (CLI) | payer MEDICARE, SELFPAY ==
--- NOTE | 2024-11-14 14:00 | MM_ITS ---
PROCEDURE INFORMATION: Exam: MG Bilateral Screening 3D Mammography Exam date and time: 11/14/2024 1:56 PM Age: 73 years old Clinical indication: Screening exam. TECHNIQUE: Imaging protocol: Bilateral Screening tomosynthesis and 2D mammography including computer-aided detection (CAD) when performed. COMPARISON: 1. MG MM DIG SCREENING MAMM BI W/CAD 10/21/2023 10:49 AM 2. MG MM DIG SCREENING MAMM BI W/CAD 09/28/2022 2:13 PM FINDINGS: MAMMOGRAPHY: Breast composition: There are scattered areas of fibroglandular density. Mass: None. Architectural distortion: None. Calcifications: No suspicious calcifications. Asymmetric density: None. Skin thickening: None. Axillary adenopathy: None. IMPRESSION: No mammographic evidence of malignancy. Annual screening is recommended unless otherwise clinically indicated. ASSESSMENT: BI-RADS 1, Negative.
== END 2024-11-14 23:59 | disposition home or self-care (01) ==
LOC: RAD 13:53
PROVIDERS: PCP Family Medicine; Visit Provider Family Medicine
DX: Z12.31 Encounter for screening mammogram for malignant neoplasm of breast (principal); R92.323 Mammographic fibroglandular density, bilateral breasts
CPT/HCPCS: 77063; 77067